=== PATIENT | female | born 1975 | race Hispanic/Latino ===

== ENCOUNTER 2018-12-22 08:01 | Emergency (ER) | payer BC ==
--- OUTSIDE RECORDS SUMMARY | 2018-12-22 08:04 | XMS REPORT | Encounter Summary ---
:1975 Author Reason for Visit Follow Up Visit Instructions 1. Obesity phentermine 37.5 mg tablet Discussion Note: None recorded.Patient educational handouts: No information available. Plan of Care Reminders Provider Appointments Weight Cheng Vides Management 09/24/2018 MD Junior 10:45AM Lab None recorded. Referral None recorded. Procedures None recorded. Surgeries None recorded. Imaging None recorded. Medications Name Start Date bupropion HCl XL 150 mg 24 hr tablet, extended release TAKE 1 TABLET BY MOUTH EVERY DAY phentermine 37.5 mg tablet Take 1 tablet every day by oral route. Medications Administered None recorded. Vitals Height Weight BMI Blood Pressure 66.5 in 200 lbs 1 oz 31.8 kg/m2 136/91 mm[Hg] Lab Results None recorded. Allergies Code Code System Name Reaction Severity Status Onset 729787 RxNorm Cymbalta Active 949476 RxNorm Demerol Active 406289 RxNorm Topamax Active Problems Name Status Onset Date Source Obesity Active Encounter Anxiety Active Encounter Chronic Back Pain Active Encounter Abdominal Mass Active Encounter Procedures Date Name Performed by 07/14/2014 Colonoscopy Information not available 07/14/1998 Back Surgery Information not available Vaccine List None recorded. Social History Smoking Status Never Smoker Past Encounters 08/25/2018 Obesity Cheng Pacheco MD: [address] [facility], [address], [place] [address], Ph. History of Present Illness Note: Here for weight management. Denies any side effects to the medication. Feels well. Review of Systems General Adult ROS, Hamzah General Adult ROS, Comprehensive Adult Problem ROS Reported By: Patient Constitutional: Constitutional: no fever, no night sweats Eyes: Eyes: no dry eyes, no irritation, no vision change. Eyes: no eye pain, no eye redness, no eye itchiness ENMT: Ears: no difficulty hearing, no ear pain, no ear discharge. Nose: no frequent nosebleeds. Mouth/Throat: no sore throat, no mouth ulcers Cardiovascular: Cardiovascular: no chest pain, no arm pain on exertion, no shortness of breath when walking, no shortness of breath when lying down, no palpitations. Cardiovascular: normal heart rate Respiratory: Respiratory: no cough, no wheezing, no shortness of breath, no coughing up blood. Respiratory: no chest tightness, no pain with respiration, normal respiration Gastrointestinal: Gastrointestinal: no abdominal pain, no vomiting, normal appetite, no diarrhea, not vomiting blood. GI: no difficulty swallowing, no nausea, no diarrhea, no constipation, no blood in stools Musculoskeletal: Musculoskeletal: no muscle aches, no muscle weakness, no arthralgias/joint pain, no back pain, no soft tissue swelling, no joint swelling, no myalgia, moves all extremities well Integumentary: Skin: no abnormal mole, no jaundice, no rashes, no pain, no flaking, no skin lesions Neurologic: Neurologic: no loss of consciousness, no weakness, no numbness, no seizures, no dizziness, no headaches. Neuro: no tingling, no burning, no shooting pain Psychiatric: Psych: no depression, no sleep disturbances, no anxiety, no insomnia Endocrine: Endocrine: no fatigue, normal drinking, no temperature intolerance Hematologic/Lymphatic: Hematologic/Lymphatic no swollen glands, no bruising Allergic/Immunologic: Allergy/Immunologic: no runny nose, no sinus pressure, no itching, no hives, no frequent sneezing Constitutional: Constitutional: happy/content, normal activity level Physical Exam General Adult Exam - Female Reported By: Patient Constitutional: General Appearance: healthy-appearing, well-nourished, well-developed. Level of Distress: NAD. Ambulation: ambulating normally Psychiatric: Insight: good judgement. Mental Status: active and alert, normal mood, normal affect. Orientation: to time, to place, to person. Memory: recent memory normal Head: Head: normocephalic Eyes: Pupils: PERRLA. EOM: EOMI. Sclerae: non-icteric ENMT: Oropharynx: moist mucous membranes Neck: Neck: supple, FROM. Thyroid: no enlargement, non-tender, no nodules Lungs: Respiratory effort: no dyspnea. Auscultation: breath sounds normal, good air movement Cardiovascular: Heart Auscultation: RRR, normal S1, normal S2. Neck vessels: no carotid bruits. Pulses including femoral / pedal: normal throughout Abdomen: Bowel Sounds: normal. Inspection and Palpation: soft, non-distended, no tenderness, no guarding Musculoskeletal:: Motor Strength and Tone: normal motor strength, normal tone. Joints, Bones, and Muscles: normal movement of all extremities. Extremities: no cyanosis, no edema, no varicosities Neurologic: Gait and Station: normal gait, normal station. Cranial Nerves: grossly intact. Reflexes: DTRs 2+ bilaterally throughout Skin: Inspection and palpation: no rash, no lesions
--- OUTSIDE RECORDS SUMMARY | 2018-12-22 08:04 | XMS REPORT | Encounter Summary ---
:1975 Author Reason for Visit Follow Up Visit Instructions 1. Obesity phentermine 37.5 mg tablet Discussion Note: None recorded.Patient educational handouts: No information available. Plan of Care Reminders Provider Appointments None recorded. Lab None recorded. Referral None recorded. Procedures None recorded. Surgeries None recorded. Imaging None recorded. Medications Name Start Date bupropion HCl XL 150 mg 24 hr tablet, extended release TAKE 1 TABLET BY MOUTH EVERY DAY phentermine 37.5 mg tablet Take 1 tablet every day by oral route. Medications Administered None recorded. Vitals Height Weight BMI Blood Pressure 66.5 in 199 lbs 7 oz 31.7 kg/m2 123/89 mm[Hg] Lab Results None recorded. Allergies Code Code System Name Reaction Severity Status Onset 126829 RxNorm Cymbalta Active 822738 RxNorm Demerol Active 114198 RxNorm Topamax Active Problems Name Status Onset Date Source Obesity Active Encounter Anxiety Active Encounter Chronic Back Pain Active Encounter Abdominal Mass Active Encounter Procedures Date Name Performed by 07/14/2014 Colonoscopy Information not available 07/14/1998 Back Surgery Information not available Vaccine List None recorded. Social History Smoking Status Never Smoker Past Encounters 07/23/2018 Obesity Cheng Pacheco MD: [address] [facility], [address], [place] [address], Ph. 06/25/2018 Obesity Cheng Pacheco MD: [address] [facility], [address], [place] [address], Ph. History of Present Illness Note: Here for weight management, Patient has lost 3 pounds since last visit. Denies any side effectsto the medication. Feels well. Review of Systems General Adult ROS, Hamzah General Adult ROS, Comprehensive Adult Problem ROS Reported By: Patient Constitutional: Constitutional: no fever, no night sweats, weight loss ( lbs) Eyes: Eyes: no dry eyes, no irritation, [...]
--- OUTSIDE RECORDS SUMMARY | 2018-12-22 08:04 | XMS REPORT | Encounter Summary ---
:1975 Author Reason for Visit Follow Up Visit Instructions 1. Obesity phentermine 37.5 mg tablet Discussion Note: None recorded.Patient educational handouts: No information available. Plan of Care Reminders Provider Appointments Weight Cheng Vides Management 10/29/2018 MD Junior 10:45AM Lab None recorded. Referral None recorded. Procedures None recorded. Surgeries None recorded. Imaging None recorded. Medications Name Start Date bupropion HCl XL 150 mg 24 hr tablet, extended release TAKE 1 TABLET BY MOUTH EVERY DAY phentermine 37.5 mg tablet Take 1 tablet every day by oral route. Medications Administered None recorded. Vitals Height Weight BMI Blood Pressure 66.5 in 198 lbs 1 oz 31.5 kg/m2 (1) 141/106 mm[Hg] (2) 145/99 mm[Hg] Lab Results None recorded. Allergies Code Code System Name Reaction Severity Status Onset 448641 RxNorm Cymbalta Active 044857 RxNorm Demerol Active 808523 RxNorm Topamax Active Problems Name Status Onset Date Source Obesity Active Encounter Anxiety Active Encounter Chronic Back Pain Active Encounter Abdominal Mass Active Encounter Procedures Date Name Performed by 07/14/2014 Colonoscopy Information not available 07/14/1998 Back Surgery Information not available Vaccine List None recorded. Social History Smoking Status Never Smoker Past Encounters 09/24/2018 Obesity Cheng Pacheco MD: [address] [place] [address], [address], [place] [address], Ph. History of Present Illness Note: Here [...]
--- OUTSIDE RECORDS SUMMARY | 2018-12-22 08:04 | XMS REPORT | Encounter Summary ---
:1975 Author Care Team Providers Name Role Phone Cheng Pacheco MD Primary Care Provider [phone] Reason for Visit Follow Up Visit Instructions 1. Obesity phentermine 37.5 mg tablet Discussion Note: None recorded.Patient educational handouts: No information available. Plan of Care Reminders Provider Appointments Weight Cheng Vides Management 11/26/2018 MD Junior 10:45AM Lab None recorded. Referral None recorded. Procedures None recorded. Surgeries None recorded. Imaging None recorded. Medications Name Start Date bupropion HCl XL 150 mg 24 hr tablet, extended release TAKE 1 TABLET BY MOUTH EVERY DAY phentermine 37.5 mg tablet Take 1 tablet every day by oral route for 30 days. Medications Administered None recorded. Vitals Height Weight BMI Blood Pressure 66.5 in 207 lbs 3 oz 32.9 kg/m2 128/83 mm[Hg] Lab Results None recorded. Allergies Code Code System Name Reaction Severity Status Onset 620324 RxNorm Cymbalta Active 839650 RxNorm Demerol Active 716177 RxNorm Topamax Active Problems Name Status Onset Date Source Obesity Active Encounter Anxiety Active Encounter Chronic Back Pain Active Encounter Abdominal Mass Active Encounter Procedures Date Name Performed by 01/29/2018 Ankle Arthroscopy/surgery Information not available 07/14/2014 Colonoscopy Information not available 07/14/1998 Back Surgery Information not available Breast Procedure Information not available Vaccine List None recorded. Social History Smoking Status Never Smoker Past Encounters 10/29/2018 Obesity Cheng Pacheco MD: [address] [facility], [address], [place] [address], Ph. History of Present Illness Note: Here [...]
--- OUTSIDE RECORDS SUMMARY | 2018-12-22 08:05 | XMS REPORT | Encounter Summary ---
:1975 Author Care Team Providers Name Role Phone Cheng Pacheco MD Primary Care Provider [phone] Reason for Visit Follow Up Visit Instructions 1. Depressive disorder learning about mood disorders bupropion HCl XL 300 mg 24 hr tablet, extended release Discussion Note: None recorded. Plan of Care Reminders Provider Appointments Return to on or around Cheng Vides Office 11/18/2018 MD Junior Weight 11/26/2018 Cheng Vides Management 10:45AM MD Junior Lab None recorded. Referral None recorded. Procedures None recorded. Surgeries None recorded. Imaging None recorded. Medications Name Start Date bupropion HCl XL 150 mg 24 hr tablet, extended release TAKE 1 TABLET BY MOUTH EVERY DAY bupropion HCl XL 300 mg 24 hr tablet, extended release Take 1 tablet every day by oral route for 30 days. Myrbetriq 50 mg tablet,extended release phentermine 37.5 mg tablet Take 1 tablet every day by oral route for 30 days. Medications Administered None recorded. Vitals Height Weight BMI Blood Pressure 66.5 in 206 lbs 16 oz 32.9 kg/m2 132/92 mm[Hg] Lab Results None recorded. Allergies Code Code System Name Reaction Severity Status Onset 093236 RxNorm Cymbalta Active 847479 RxNorm Demerol Active 507953 RxNorm Topamax Active Problems Name Status Onset Date Source Obesity Active Encounter Anxiety Active Encounter Chronic Back Pain Active Encounter Abdominal Mass Active Encounter Procedures Date Name Performed by 01/29/2018 Ankle Arthroscopy/surgery Information not available 07/14/2014 Colonoscopy Information not available 07/14/1998 Back Surgery Information not available Breast Procedure Information not available Vaccine List None recorded. Social History Smoking Status Never Smoker Past Encounters 11/04/2018 Depressive Disorder Cheng Pacheco MD: [address] [facility], [address], [place] [address], Ph. 10/29/2018 Obesity Cheng Pacheco MD: [address] [place] [address], [address], [place] [address], Ph. History of Present Illness Care Management - Anxiety/Depression Reported By: Patient Care Management: Prognosis: prognosis: moderate. Diagnosed greater than 5 years ago. Compliance taking medications as directed yes, keeping follow up appointments appropriately yes, minimizing/abstaining from alcohol use yes, abstaining from drug use yes. Follow Up with PCP scheduled yes, with psychologist/psychiatrist no. Current Medication ; Bupropion XL 150 Mill grams by mouth daily. States she feels that she needs to up the dose Interim History: Severity: denies suicidal ideations, able to maintain relationships, interference with household activities, interference with sleep. Quality: symptoms worse in the evening, mood worse, increased anxiety. Onset/Timing: gradual. Context: major life stressors, family problems, legal problems. Modifying Factors: social support. Associated Symptoms: denies homicidal ideations, no visual/auditory hallucinations, no delusions, no shortness of breath, maintaining functionality, anxiety, depression, loneliness, low self-esteem, pessimism Review of Systems General Adult ROS, Hamzah [...] no tingling, no burning, no shooting pain Endocrine: Endocrine: no fatigue, normal drinking, no [...] good judgement. Mental Status: active and alert, anxious , depressed. Orientation: to time, to place, to person. [...]
--- OUTSIDE RECORDS SUMMARY | 2018-12-22 08:05 | XMS REPORT | Encounter Summary ---
:1975 Author Care Team Providers Name Role Phone Cheng Pacheco MD Primary Care Provider [phone] Reason for Visit Follow Up Visit Instructions 1. Obesity phentermine 37.5 mg tablet 2. Depressive disorder learning about mood disorders Discussion Note: None recorded. Plan of Care Reminders Provider Appointments None [...] Height Weight BMI Blood Pressure 66.5 in 205 lbs 32.6 kg/m2 136/92 mm[Hg] Lab Results None recorded. Allergies Code Code System Name Reaction Severity Status Onset 772294 RxNorm Cymbalta Active 048864 RxNorm Demerol Active 402580 RxNorm Topamax Active Problems Name Status Onset Date Source Obesity Active Encounter Anxiety Active Encounter Chronic Back Pain Active Encounter Abdominal Mass Active Encounter Procedures Date Name Performed by 01/29/2018 Ankle Arthroscopy/surgery Information not available 07/14/2014 Colonoscopy Information not available 07/14/1998 Back Surgery Information not available Breast Procedure Information not available Vaccine List None recorded. Social History Smoking Status Never Smoker Past Encounters 11/26/2018 Obesity; Depressive Disorder Cheng Pacheco MD: [address] [facility], [address], [place] [address], Ph. 11/04/2018 Depressive Disorder Cheng Pacheco MD: [address] [facility], [address], [place] [address], Ph. 10/29/2018 Obesity Cheng Pacheco MD: [address] [place] [address], [address], [place] [address], Ph. History of Present Illness Anxiety/Depression Reported By: Patient HPI: Quality: symptoms improved. Severity: denies suicidal ideations, able to maintain relationships, does not interfere with activities of daily living. Duration: stablizing. Onset/Timing: gradual. Context: major life stressors. Modifying Factors: medications as directed. Associated Symptoms: denies homicidal ideations Note: Here for weight management. Denies any [...]
[2018-12-22 08:51] LABS: Absolute Lymphocytes (CBC) 1.6 K/uL (0.7-4.9); Absolute Monocytes 0.5 K/uL (0.1-1.3); Absolute Neutrophil 3.1 K/uL (1.8-8.0); Basophils % 1.4 % (0-1.3); Eosinophils % 1.7 % (0-4.4); Hematocrit 37.8 % (36.0-45.0); Lymphocytes % 29.6 % (15.3-44.8); MPV 7.1 fL (7.6-11.3); Monocytes % 8.6 % (3.3-12.3); RBC Red Blood Cell Count 4.13 M/uL (3.86-4.86)
[2018-12-22 09:08] LABS: ALT/SGPT 16 U/L (12-78); AST/SGOT 10 U/L (15-37); Albumin 3.6 g/dL (3.4-5.0); Alkaline Phosphatase 68 U/L (45-117); BUN Blood Urea Nitrogen 9 mg/dL (7-18); Bicarbonate 27 mmol/L (21-32); Bilirubin Direct 0.2 mg/dL (0-0.2); Glucose Level 82 mg/dL (74-106); Lipase 83 U/L (73-393); Potassium 3.7 mmol/L (3.5-5.1); Protein, Total 7.3 g/dL (6.4-8.2); Sodium Level 139 mmol/L (136-145)
[2018-12-22] MEDS ORDERED: KETOROLAC 30 MG/ML INJ ONE (09:34)
[2018-12-22] MEDS ORDERED: NA CHLORIDE 0.9% 1,000 ML ONE (09:34)
[2018-12-22] MEDS ORDERED: ONDANSETRON 4 MG/2 ML VIAL ONE (09:34)
[2018-12-22 10:05] LABS: Urine Blood NEGATIVE (NEG); Urine Glucose NEGATIVE (NEG); Urine Protein TRACE (NEG); Urine Specific Gravity 1.015 (1.005-1.030); Urine pH 7.5 (5.0-7.0)
--- NOTE | 2018-12-22 10:10 | RAD REPORT ---
EXAM DESCRIPTION: CT - Abdomen Pelvis W Contrast - 12/22/2018 9:30 am CLINICAL HISTORY: Abdominal pain with nausea. COMPARISON: 2014 TECHNIQUE: Computed axial tomography of the abdomen pelvis was obtained. 100 cc Isovue-300 was admin istered intravenously. Oral contrast was not requested which limits evaluation of bowel. All CT scans are performed using dose optimization technique as appropriate and may include automated exposure control or mA/KV adjustment according to patient size. FINDINGS: Mild fatty liver The Spleen, pancreas, adrenal and kidneys appear unremarkable. There is no evidence of diverticulitis. Normal appendix 6 centimeter structure is present within the cecum extending into the terminal ileum A small umbilical hernia contains fat Postsurgical changes involve the lumbar spine IMPRESSION: 6 centimeter soft tissue structure within the cecum extending into the terminal ileum ma y represent a mass or stool. Direct visualization recommended
--- NOTE | 2018-12-22 11:30 | ER ---
Nurse's Notes [facility] Name: Lin Escalante Age: 43 yrs Sex: Female : 1975 Arrival Date: 12/22/2018 Time: 08:06 Bed 16 Private MD: out of town, doctor Diagnosis: Right lower quadrant abdominal swelling, mass and lump Presentation: 12/22 08:09 Presenting complaint: Patient states: She feels bloated and nauseous. c/o urine rb1 frequency and right lower back that radiates down her right leg and right lower quadrant pain. Transition of care: patient was not received from another setting of care. Onset of symptoms is unknown. Risk Assessment: Do you want to hurt yourself or someone else? Patient reports no desire to harm self or others. Initial Sepsis Screen: Does the patient meet any 2 criteria? No. Patient's initial sepsis screen is negative. Does the patient have a suspected source of infection? No. Patient's initial sepsis screen is negative. Care prior to arrival: None. 08:09 Method Of Arrival: Ambulatory rb1 08:09 Acuity: USHA 3 rb1 Triage Assessment: 08:09 General: Appears in no apparent distress. comfortable, Behavior is calm, cooperative, rb1 Denies fever. Pain: Complains of pain in right lower back, righ lower quadrant Pain radiates to right leg Pain currently is 8 out of 10 on a pain scale. Pain began x 2 weeks. Neuro: Level of Consciousness is awake, alert, obeys commands, Oriented to person, place, time, situation. Cardiovascular: Capillary refill < 3 seconds is brisk in bilateral fingers. Respiratory: Airway is patent Respiratory effort is even, unlabored, Respiratory pattern is regular, symmetrical. GI: Reports nausea. : Reports urinary frequency. Derm: Skin is pink, warm \T\ dry. 08:09 GI: Reports bloating. 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 - Social history:: Smoking status: Patient/guardian denies using tobacco. - Ebola Screening: : Patient negative for fever greater than or equal to 101.5 degrees Fahrenheit, and additional compatible Ebola Virus Disease symptoms. Screenin:09 Abuse screen: Denies threats or abuse. rb1 08:09 Nutritional screening: No deficits noted. Tuberculosis screening: No symptoms or risk rb1 factors identified. Fall Risk None identified. Assessment: 08:09 General: See triage assessment.. rb1 09:00 Reassessment: Patient appears in no apparent distress at this time. No changes from rb1 previously documented assessment. 10:00 Reassessment: Patient appears in no apparent distress at this time. Patient and/or rb1 family updated on plan of care and expected duration. Pain level reassessed. Patient is alert, oriented x 3, equal unlabored respirations, skin warm/dry/pink. 10:51 Reassessment: Pt. ambulated to the restroom without difficulty. rb1 11:00 Reassessment: Patient appears in no apparent distress at this time. Patient and/or rb1 family updated on plan of care and expected duration. Pain level reassessed. Patient is alert, oriented x 3, equal unlabored respirations, skin warm/dry/pink. 11:39 Reassessment: Patient appears in no apparent distress at this time. No changes from rb1 previously documented assessment. Vital Signs: 08:09 BP 129 / 88; Pulse 77; Resp 17; Temp 98.0(O); Pulse Ox 100% on R/A; Weight 86.18 kg rb1 (R); Height 5 ft. 7 in. (170.18 cm) (R); Pain 8/10; 09:09 BP 127 / 77; Pulse 65; Resp 17; Temp 98.2(TE); Pulse Ox 100% ; Pain 8/10; rb1 10:09 BP 127 / 87; Pulse 65; Resp 16; Temp 98.5(TE); Pulse Ox 100% on R/A; Pain 6/10; rb1 11:30 BP 127 / 81 RA (auto/reg); Pulse 76; Pulse Ox 100% on R/A; rb1 08:09 Body Mass Index 29.76 (86.18 kg, 170.18 cm) [facility] ED Course: 08:06 Patient arrived in ED. mr 08:06 out of town, doctor is Private Physician. mr 08:09 Nieves Mckeon, RN is Primary Nurse. rb1 08:09 Arm band placed on right wrist. rb1 08:09 Patient has correct armband on for positive identification. Placed in gown. Bed in low rb1 position. Call light in reach. Side rails up X 1. Pulse ox on. NIBP on. Warm blanket given. 08:16 Ivis Tristan MD is Attending Physician. ma2 08:17 Attending Physician role handed off by Ivis Tristan MD tw4 08:17 Aden Babcock MD is Attending Physician. tw4 08:27 Triage completed. rb1 08:40 Inserted saline lock: 22 gauge in left antecubital area, using aseptic technique. Blood rb1 collected. 09:34 CT Abd/Pelvis - IV Contrast Only In Process Unspecified. EDMS 11:25 Dorian Flynn MD is Referral Physician. tw4 11:25 Rafat Beckham MD is Referral Physician. tw4 11:26 Jovani Douglas MD is Referral Physician. tw4 11:39 No provider procedures requiring assistance completed. IV discontinued, intact, rb1 bleeding controlled, No redness/swelling at site. Pressure dressing applied, Dc'd by SYED Jones Tech. Administered Medications: 09:38 Drug: TORadol 30 mg Route: IVP; Site: left antecubital; rb1 09:52 Follow up: Response: No adverse reaction; Pain is decreased rb1 09:38 Drug: Zofran 4 mg Route: IVP; Site: left antecubital; rb1 09:52 Follow up: Response: No adverse reaction; Nausea is decreased rb1 09:38 Drug: NS 0.9% 1000 ml Route: IV; Rate: 1 bolus; Site: left antecubital; rb1 10:42 Follow up: IV Status: Completed infusion rb1 Output: 10:50 Urine: 1ml (Voided); Total: 1ml. rb1 Outcome: 11:27 Discharge ordered by . tw4 11:41 Discharged to home ambulatory, with significant other. rb1 11:41 Condition: stable 11:41 Discharge instructions given to patient, Instructed on discharge instructions, follow up and referral plans. medication usage, Demonstrated understanding of instructions, follow-up care, medications, Prescriptions given X 2. 11:42 Patient left the ED. rb1 Signatures: Dispatcher [facility] Rayna Dan Rebecca, RN RN rb1 Ivis Tristan MD MD ma2 Aden Babcock MD MD tw4
--- NOTE | 2018-12-22 11:30 | EDPHYS ---
Physician Documentation [facility] Name: Lin Escalante Age: 43 yrs Sex: Female : 1975 Arrival Date: 12/22/2018 Time: 08:06 Bed 16 Private MD: out of town, doctor ED Physician Aden Babcock HPI: 12/22 11:00 This 43 yrs old Female presents to ER via Ambulatory with complaints of tw4 Nausea, Abdominal Swelling, Abdominal Pain. 11:00 The patient presents to the emergency department with nausea, vomiting. Possible tw4 causes: flare up of bowel problem. The symptoms are aggravated by nothing. The symptoms are alleviated by nothing. 16:26 Onset: The symptoms/episode began/occurred 3 week(s) ago. Associated signs and tw4 symptoms: The patient has no apparent associated signs or symptoms. Severity of symptoms: At their worst the symptoms were mild in the emergency department the symptoms are unchanged. The patient has not experienced similar symptoms in the past. 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 - Social history:: Smoking status: Patient/guardian denies using tobacco. - Ebola Screening: : Patient negative for fever greater than or equal to 101.5 degrees Fahrenheit, and additional compatible Ebola Virus Disease symptoms. ROS: 16:24 Constitutional: Negative for fever, chills, and weight loss, Eyes: Negative for injury, tw4 pain, redness, and discharge, ENT: Negative for injury, pain, and discharge, Respiratory: Negative for shortness of breath, cough, wheezing, and pleuritic chest pain, Back: Negative for injury and pain, MS/Extremity: Negative for injury and deformity, Skin: Negative for injury, rash, and discoloration, Neuro: Negative for headache, weakness, numbness, tingling, and seizure. 16:24 Abdomen/GI: Positive for abdominal pain, nausea, Negative for nausea and vomiting, nausea, vomiting, and diarrhea, abdominal cramps, abdominal distension, anorexia, dysphagia, hematemesis, black/tarry stool, rectal pain, rectal bleeding. Exam: 16:24 Constitutional: This is a well developed, well nourished patient who is awake, alert, tw4 and in no acute distress. Head/Face: Normocephalic, atraumatic. Chest/axilla: Normal chest wall appearance and motion. Nontender with no deformity. No lesions are appreciated. Cardiovascular: Regular rate and rhythm with a normal S1 and S2. No gallops, murmurs, or rubs. Normal PMI, no JVD. No pulse deficits. Respiratory: Lungs have equal breath sounds bilaterally, clear to auscultation and percussion. No rales, rhonchi or wheezes noted. No increased work of breathing, no retractions or nasal flaring. Back: No spinal tenderness. No costovertebral tenderness. Full range of motion. Skin: Warm, dry with normal turgor. Normal color with no rashes, no lesions, and no evidence of cellulitis. MS/ Extremity: Pulses equal, no cyanosis. Neurovascular intact. Full, normal range of motion. Neuro: Awake and alert, GCS 15, oriented to person, place, time, and situation. Cranial nerves II-XII grossly intact. Motor strength 5/5 in all extremities. Sensory grossly intact. Cerebellar exam normal. Normal gait. 16:24 Abdomen/GI: Inspection: abdomen appears normal, Bowel sounds: active, Palpation: mild abdominal tenderness, in the right lower quadrant. Vital Signs: 08:09 BP 129 / 88; Pulse 77; Resp 17; Temp 98.0(O); Pulse Ox 100% on R/A; Weight 86.18 kg rb1 (R); Height 5 ft. 7 in. (170.18 cm) (R); Pain 8/10; 09:09 BP 127 / 77; Pulse 65; Resp 17; Temp 98.2(TE); Pulse Ox 100% ; Pain 8/10; rb1 10:09 BP 127 / 87; Pulse 65; Resp 16; Temp 98.5(TE); Pulse Ox 100% on R/A; Pain 6/10; rb1 11:30 BP 127 / 81 RA (auto/reg); Pulse 76; Pulse Ox 100% on R/A; rb1 08:09 Body Mass Index 29.76 (86.18 kg, 170.18 cm) rb1 MDM: 08:17 Patient medically screened. tw4 16:24 Differential diagnosis: Nonspecific abd pain, gastritis. Data reviewed: vital signs, tw4 nurses notes. Counseling: I had a detailed discussion with the patient and/or guardian regarding: the historical points, exam findings, and any diagnostic results supporting the discharge/admit diagnosis. 12/22 08:21 Order name: Basic Metabolic Panel tw 12/22 08:21 Order name: CBC with Diff tw4 12/22 08:21 Order name: Creatinine for Radiology tw 12/22 08:21 Order name: Hepatic Function; Complete Time: 10:57 tw4 12/22 08:21 Order name: Lipase; Complete Time: 10:57 tw 12/22 08:24 Order name: Basic Metabolic Panel; Complete Time: 10:57 EDGA 12/22 08:24 Order name: CBC with Automated Diff; Complete Time: 10:57 EDGA 12/22 08:24 Order name: Creatinine (Radiology Only); Complete Time: 10:57 EDGA 12/22 08:51 Order name: CT Abd/Pelvis - IV Contrast Only; Complete Time: 10:57 [facility] 12/22 09:31 Order name: Urine Culture [facility] 12/22 09:32 Order name: Urine Dipstick--Ancillary (enter results); Complete Time: 10:57 12/22 09:32 Order name: Urine --Ancillary (enter results); Complete Time: 10:57 12/22 08:21 Order name: IV Saline Lock; Complete Time: 08:44 [facility] 12/22 08:21 Order name: Labs collected and sent; Complete Time: 08:44 [facility] 12/22 09:31 Order name: Urine Dipstick-Ancillary (obtain specimen); Complete Time: 09:33 rb1 Administered Medications: 09:38 Drug: TORadol 30 mg Route: IVP; Site: left antecubital; rb1 09:52 Follow up: Response: No adverse reaction; Pain is decreased rb1 09:38 Drug: Zofran 4 mg Route: IVP; Site: left antecubital; rb1 09:52 Follow up: Response: No adverse reaction; Nausea is decreased rb1 09:38 Drug: NS 0.9% 1000 ml Route: IV; Rate: 1 bolus; Site: left antecubital; rb1 10:42 Follow up: IV Status: Completed infusion rb1 Disposition: 12/22/18 11:27 Discharged to Home. Impression: Right lower quadrant abdominal swelling, mass and lump. - Condition is Stable. - Discharge Instructions: Colon Mass, Adult. - Prescriptions for Ibuprofen 800 mg Oral Tablet - take 1 tablet by ORAL route every 12 hours As needed take with food; 20 tablet. Zofran 4 mg Oral Tablet - take 1 tablet by ORAL route every 12 hours As needed; 6 tablet. - Family Work Release, Medication Reconciliation Form, Thank You Letter, Antibiotic Education, Prescription Opioid Use form. - Follow up: Dorian Flynn MD; When: Upon discharge from the Emergency Department; Reason: If symptoms return, Recheck today's complaints, Continuance of care. Follow up: Rafat Beckham MD; When: Upon discharge from the Emergency Department; Reason: If symptoms return, Recheck today's complaints, Continuance of care. Follow up: Jovani Douglas MD; When: Upon discharge from the Emergency Department; Reason: If symptoms return, Recheck today's complaints, Continuance of care. Signatures: Dispatcher [employer] Nieves Kahn, NABILA RN rb1 Aden Babcock MD MD tw4 Corrections: (The following items were deleted from the chart) 11:42 11:27 12/22/2018 11:27 Discharged to Home. Impression: Right lower quadrant abdominal rb1 swelling, mass and lump. Condition is Stable. Forms are Medication Reconciliation Form, Thank You Letter, Antibiotic Education, Prescription Opioid Use. Follow up: Dorian Flynn; When: Upon discharge from the Emergency Department; Reason: If symptoms return, Recheck today's complaints, Continuance of care. Follow up: Rafat Beckham; When: Upon discharge from the Emergency Department; Reason: If symptoms return, Recheck today's complaints, Continuance of care. Follow up: Jovani Douglas; When: Upon discharge from the Emergency Department; Reason: If symptoms return, Recheck today's complaints, Continuance of care. tw4 16:26 11:00 Onset: The symptoms/episode began/occurred today, tw4 tw4
== END 2018-12-22 11:42 | disposition home or self-care (01) ==
LOC: ER 08:01
DX: R19.03 Right lower quadrant abdominal swelling, mass and lump (principal); F32.9 Major depressive disorder, single episode, unspecified; Z88.5 Allergy status to narcotic agent
CPT/HCPCS: 36415; 74177; 80048; 80076; 81003; 81025; 83690; 85025; 87086; 87088; 96361; 96374; 96375; 99284; J2405; J7030; Q9967

== ENCOUNTER 2022-05-22 01:23 | Emergency (ER) | payer BC ==
[2022-05-22] MEDS ORDERED: HYDROCODONE/APAP 5/325 MG TAB ONE (01:53)
--- NOTE | 2022-05-22 06:48 | ER ---
Nurse's Notes [facility] Name: Lin Escalante Age: 47 yrs Sex: Female : 1975 Arrival Date: 05/22/2022 Time: 01:25 Bed 13 Private MD: Diagnosis: Uterine fibroid, abdominal pain, genital herpes Presentation: 05/22 01:41 Chief complaint: Patient states: I have fibroid cyst and the pain is worse than normal jb4 tonight. I also have a lesion that just showed up on the outside of my genitalia and it is now bleeding. Coronavirus screen: At this time, the client does not indicate any symptoms associated with coronavirus-19. Ebola Screen: No symptoms or risks identified at this time. Initial Sepsis Screen: Does the patient meet any 2 criteria? HR > 90 bpm. Yes Does the patient have a suspected source of infection? No. Patient's initial sepsis screen is negative. Risk Assessment: Do you want to hurt yourself or someone else? Patient reports no desire to harm self or others. Onset of symptoms was May 22, 2022. Transition of care: patient was not received from another setting of care. 01:41 Method Of Arrival: Ambulatory jb4 01:41 Acuity: USHA 3 jb4 Historical: - Allergies: 01:42 Demerol; jb4 - Home Meds: 01:42 None [Active]; jb4 - PMHx: 01:42 Depression; jb4 - PSHx: 01:42 spinal fusion; ankle fusion; jb4 - Immunization history:: Adult Immunizations not up to date. - Social history:: Smoking status: Patient denies any tobacco usage or history of. Screenin:45 Abuse screen: Denies threats or abuse. Nutritional screening: No deficits noted. jb4 Tuberculosis screening: No symptoms or risk factors identified. Fall Risk None identified. Assessment: 01:45 General: Appears in no apparent distress. uncomfortable, Behavior is calm, cooperative, jb4 appropriate for age, Chaperoned by NABILA Gabriel. Pain: Complains of pain in right lower quadrant, left lower quadrant and prepuce Pain does not radiate. Pain currently is 8 out of 10 on a pain scale. Neuro: Level of Consciousness is awake, alert, obeys commands, Oriented to person, place, time, situation. Cardiovascular: Patient's skin is warm and dry. Respiratory: Airway is patent Respiratory effort is even, unlabored, Respiratory pattern is regular, symmetrical. GI: Abdomen is non-distended, obese. : No signs and/or symptoms were reported regarding the genitourinary system. EENT: No signs and/or symptoms were reported regarding the EENT system. Derm: Skin is intact, Skin is pink, warm \T\ dry. Musculoskeletal: Circulation, motion, and sensation intact. Range of motion: intact in all extremities. Vital Signs: 01:41 BP 140 / 94; Pulse 96; Resp 16; Temp 98.3; Pulse Ox 100% on R/A; Weight 99.79 kg (R); jb4 Height 5 ft. 7 in. (170.18 cm) (R); Pain 8/10; 01:41 Body Mass Index 34.46 (99.79 kg, 170.18 cm) jb4 ED Course: 01:25 Patient arrived in ED. ja2 01:31 Trang Reaves MD is Attending Physician. sp3 01:42 Triage completed. jb4 01:42 Arm band placed on right wrist. jb4 01:45 Patient has correct armband on for positive identification. Bed in low position. Call jb4 light in reach. Side rails up X 1. 01:50 Wilder Snow RN is Primary Nurse. jb4 02:02 No provider procedures requiring assistance completed. Patient did not have IV access jb4 during this emergency room visit. Administered Medications: 01:55 Drug: HYDROcodone-acetaminophen 5 mg-325 mg 2 tabs Route: PO; jb4 02:03 Follow up: Response: Medication administered at discharge. jb4 Medication: 01:45 VIS not applicable for this client. jb4 Outcome: 01:54 Discharge ordered by . sp3 02:02 Discharged to home ambulatory. jb4 02:02 Condition: stable 02:02 Discharge instructions given to patient, Instructed on discharge instructions, follow up and referral plans. medication usage, Demonstrated understanding of instructions, follow-up care, medications, Prescriptions given X 2. 02:03 Patient left the ED. jb4 Signatures: Wilder Snow RN RN jb4 Trang Reaves MD MD sp3 Moni Severino [facility]
--- NOTE | 2022-05-22 06:48 | EDPHYS ---
Physician Documentation [facility] Name: Lin Escalante Age: 47 yrs Sex: Female : 1975 Arrival Date: 05/22/2022 Time: 01:25 Bed 13 Private MD: SYED Physician Trang Reaves HPI: 05/22 01:50 This 47 yrs old Female presents to ER via Ambulatory with complaints of Groin sp3 Pain, Abdominal Cramping. 01:50 47-year-old female with history of depression and uterine fibroids presents with sp3 typical uterine fibroid pattern along with new lesion on her right external labia that she noticed earlier yesterday. Lesion is painful and she states that bled mildly and is now resolved. Denies fever, URI symptoms, chest pain, shortness of breath, back pain, upper abdominal pain, nausea, vomiting, diarrhea, rash anywhere else, joint swelling, new sexual contacts, any other aspects of ROS at this time. 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 Currently she is in a monogamous relationship.. Historical: - Allergies: 01:42 Demerol; jb4 - Home Meds: 01:42 None [Active]; jb4 - PMHx: 01:42 Depression; jb4 - PSHx: 01:42 spinal fusion; ankle fusion; jb4 - Immunization history:: Adult Immunizations not up to date. - Social history:: Smoking status: Patient denies any tobacco usage or history of. ROS: 01:51 Constitutional: Negative for fever, chills, and weight loss, Eyes: Negative for injury, sp3 pain, redness, and discharge, ENT: Negative for injury, pain, and discharge, Neck: Negative for injury, pain, and swelling, Cardiovascular: Negative for chest pain, palpitations, and edema, Respiratory: Negative for shortness of breath, cough, wheezing, and pleuritic chest pain, Back: Negative for injury and pain, MS/Extremity: Negative for injury and deformity, Neuro: Negative for headache, weakness, numbness, tingling, and seizure, Psych: Negative for depression, anxiety, suicide ideation, homicidal ideation, and hallucinations, Allergy/Immunology: Negative for hives, rash, and allergies, Endocrine: Negative for neck swelling, polydipsia, polyuria, polyphagia, and marked weight changes, Hematologic/Lymphatic: Negative for swollen nodes, abnormal bleeding, and unusual bruising. 01:51 All other systems are negative. Exam: 01:52 Constitutional: This is a well developed, well nourished patient who is awake, alert, sp3 and in no acute distress. Head/Face: Normocephalic, atraumatic. Neck: Trachea midline, no thyromegaly or masses palpated, and no cervical lymphadenopathy. Supple, full range of motion without nuchal rigidity, or vertebral point tenderness. No Meningismus. Chest/axilla: Normal chest wall appearance and motion. Nontender with no deformity. No lesions are appreciated. Cardiovascular: Regular rate and rhythm with a normal S1 and S2. No gallops, murmurs, or rubs. Normal PMI, no JVD. No pulse deficits. Respiratory: Lungs have equal breath sounds bilaterally, clear to auscultation and percussion. No rales, rhonchi or wheezes noted. No increased work of breathing, no retractions or nasal flaring. Back: No spinal tenderness. No costovertebral tenderness. Full range of motion. Skin: Warm, dry with normal turgor. Normal color with no rashes, no lesions, and no evidence of cellulitis. MS/ Extremity: Pulses equal, no cyanosis. Neurovascular intact. Full, normal range of motion. Neuro: Awake and alert, GCS 15, oriented to person, place, time, and situation. Cranial nerves II-XII grossly intact. Motor strength 5/5 in all extremities. Sensory grossly intact. Cerebellar exam normal. Normal gait. 01:52 Abdomen/GI: Mild pain to palpation lower abdominal without peritoneal signs. Exam is limited secondary to body habitus.. 01:52 : Single vesicular lesion on the right lateral aspect of the outer labia consistent with herpetic lesion.. Vital Signs: 01:41 BP 140 / 94; Pulse 96; Resp 16; Temp 98.3; Pulse Ox 100% on R/A; Weight 99.79 kg (R); jb4 Height 5 ft. 7 in. (170.18 cm) (R); Pain 8/10; 01:41 Body Mass Index 34.46 (99.79 kg, 170.18 cm) jb4 MDM: 01:49 Patient medically screened. sp3 01:53 Data reviewed: vital signs, nurses notes. ED course: 47-year-old female with no sp3 significant past medical history and uterine fibroids presents with typical fibroid related pain pattern and herpetic lesion. I believe the herpetic lesion was more the reason for her to present as her fibroid pain is typical and she has no peritoneal signs and is in no significant distress. Will give [place] 2 tabs p.o. here and discharge patient home on p.o. diclofenac and antiviral for herpes. Follow-up with CRYPTOLOGIC SUPPORT SPECIALIST as needed. Patient is scheduled for surgery July 2022.. Administered Medications: 01:55 Drug: HYDROcodone-acetaminophen 5 mg-325 mg 2 tabs Route: PO; jb4 02:03 Follow up: Response: Medication administered at discharge. jb4 Disposition Summary: 05/22/22 01:54 Discharge Ordered Location: Home sp3 Condition: Stable sp3 Diagnosis - Uterine fibroid, abdominal pain, genital herpes sp3 Followup: sp3 - With: Private Physician - When: Upon discharge from the Emergency Department - Reason: Continuance of care Discharge Instructions: - Discharge Summary Sheet sp3 - Uterine Fibroids sp3 - Genital Herpes sp3 Forms: - Family Work Release jb4 - Medication Reconciliation Form sp3 - Thank You Letter sp3 - Antibiotic Education sp3 - Prescription Opioid Use sp3 Prescriptions: - Valtrex 500 mg Oral Tablet - take 1 tablet by ORAL route every 12 hours for 3 days; 6 tablet; Refills: 0, sp3 Product Selection Permitted - Diclofenac Sodium 75 mg Oral Tablet Sustained Release - take 1 tablet by ORAL route 2 times per day; 30 tablet; Refills: 0, Product sp3 Selection Permitted Signatures: Wilder Snow, NABILA RN jb4 Trang Reaves MD MD sp3
--- OUTSIDE RECORDS SUMMARY | 2022-05-22 06:51 | XMS REPORT | Continuity of Care Document ---
:1975 Author Organization [facility] t Address [facility] [place] [address] Care Team Providers Name Role Phone Cheng Pacheco Primary Care Physician Desiree Villanueva Attending Clinician Unavailable ELISHA DHALIWAL Attending Clinician Unavailable Elisha Sanches Attending Clinician [phone] Doctor Unassigned, [facility] Attending Clinician Unavailable Aldo Attending Clinician Unavailable MARIANA WYATT Attending Clinician Unavailable Mariana Gregory Attending Clinician MICHELLE KRUEGER Attending Clinician Unavailable Michelle Krueger DO Attending Clinician NURYS BURRELL Attending Clinician Unavailable Nurys Burrell DO Attending Clinician DOMENICO HICKS Attending Clinician Unavailable Domenico Hicks MD Attending Clinician NAZARIO JAMES Attending Clinician Unavailable Nazario Hall Attending Clinician Shalonda Barger Attending Clinician Shield Attending Clinician Unavailable Tye Barr MD Attending Clinician Radiology Attending Clinician Unavailable Desiree Villanueva Admitting Clinician Unavailable Aldo Admitting Clinician Unavailable MARIANA WYATT Admitting Clinician Unavailable NURYS BURRELL Admitting Clinician Unavailable DOMENICO HICKS Admitting Clinician Unavailable NAAZRIO JAMES Admitting Clinician Unavailable TYE BARR Admitting Clinician Unavailable Itzel Admitting Clinician Unavailable Payers Payer Name Policy Type Policy Number Effective Date Expiration Date Brittni botello [facility] [id number] 2020 00:00:00 [employer] [place] - [id number] 2018 OUT OF STATE 00:00:00 [facility] - [id number] 2020 2021 EV BENEFITS 00:00:00 00:00:00 [place] [id number] 2018 2020 00:00:00 00:00:00 Problems Condition Condition Condition Status Onset Resolution Last Treating Co mments Source Name Details Category Date Date Treatment Clinician Date Cervical Cervical Disease Active Overview: Un norman Papanicola Papanicola 8-24 Formattin ity of ou smear ou smear 00:00: g of this Aditya as negative negative 00 note Medica l within within might be Branch last 12 last 12 different months months from the original. NIL pap 09/2020 neg hpv Other Other Disease Active Univers general general 8-19 it[facility] of counseling [place] advice and advice 00 Me dical for for Branch contracept contracept edson edson management management Breast Breast Disease Active Univers pain pain 8-19 ity of 00:00: [place] [address] Medical Branch Obesity Obesity Disease Active Univers (BMI (BMI 8-19 ity of 30-39.9) 30-39.9) 00:00: [place] [address] Medical Branch History of History of Disease Active U nivers tubal tubal 8-19 ity of ligation ligation 00:00: [place] [address] Medical Branch History of History of Disease Active U nivers depression depression - it y of 00:00: [place] 00 Medical Branch History of History of Disease Active U nivers uterine uterine - ity of fibroid fibroid 00:00: [place] 00 Medical Branch Obesity Obesity Problem Active [facility] Anxiety Anxiety Problem Active [facility] Chronic Chronic Problem Active [facility] Abdominal Abdominal Problem Active [facility] Allergies, Adverse Reactions, Alerts Allergy Allergy Status Severity Reaction(s) Onset Inactive Treating Comm ents Source Name Type Date Date Clinician Meperidi Propensi Active Hives Univer s ne Hcl ty to 01-29 ity of adverse 00:00: [place] reaction 00 Medical s Branch MEPERIDI DRUG Active Hives Univers NE HCL INGREDI 01-29 ity of 00:00: [place] 00 Medical Branch meperidi DA Active U [facility] [place] meperidi DA Active U RASH [facility] [place] Cymbalta Allergy Active [facility] Demerol Allergy Active [facility] Topamax Allergy Active [facility] Duloxeti Propensi Active Rash Univer s ne ty to ity of adverse [place] reaction Medical s Branch Topirama Propensi Active Rash Univer s te ty to ity of adverse [place] reaction Medical s Branch DULOXETI DRUG Active Rash Univers NE INGREDI [facility] [place] [facility] TOPIRAMA DRUG Active Rash Univers TE INGREDI [facility] [place] [facility] Social History Social Habit Start Date Stop Date Quantity Comments Source Exposure to 2022-02-19 2022-03-01 Not sure University SARS-CoV-2 00:00:00 10:43:00 [place] Medical (event) Branch Tobacco use and 2022-03-01 2022-03-01 Smokeless tobacco Un iversity of exposure 00:00:00 00:00:00 non-user [facility] Alcohol intake 2022-03-01 2022-03-01 Current University of 00:00:00 00:00:00 non-drinker of [facility] alcohol (finding) Branch Sex Ass[birth year] At [birth year] Universit y of 00:00:00 00:00:00 [facility] Smoking Status Start Date Stop Date Source Never smoked tobacco [facility] Medications Ordered Filled Start Stop Current Ordering Indication Dosage Frequency Signature Comments Components Source Medication Medication Date Date Medication? Clinician (SIG) Name Name ampicillin 2021- Yes [id number] 500mg Take 1 Univers 500 mg 03-04 capsule by ity of capsule 00:00: 04:59 mouth 4 [place] 00 :00 ([facility]) Medical times Branch daily for 10 days. ampicillin 2021- Yes [id number] 500mg Take 1 Univers 500 mg 03-04 capsule by ity of capsule 00:00: 04:59 mouth 4 [place] 00 :00 ([facility]) Medical times Branch daily for 10 days. ampicillin 2021- Yes [id number] 500mg Take 1 Univers 500 mg 03-04 capsule by ity of capsule 00:00: 04:59 mouth 4 [place] 00 :00 ([facility]) Medical times Branch daily for 10 days. ampicillin 2021- Yes [id number] 500mg Take 1 Univers 500 mg 03-04 capsule by ity of capsule 00:00: 04:59 mouth 4 [place] 00 :00 ([facility]) Medical times Branch daily for 10 days. ampicillin 2021- Yes [id number] 500mg Take 1 Univers 500 mg 03-04 capsule by ity of capsule 00:00: 04:59 mouth 4 [place] 00 :00 ([facility]) Medical times Branch daily for 10 days. ampicillin 2021- Yes [id number] 500mg Take 1 Univers 500 mg 03-04 capsule by ity of capsule 00:00: 04:59 mouth 4 [place] 00 :00 ([facility]) Medical times Branch daily for 10 days. ampicillin 2021- Yes [id number] 500mg Take 1 Univers 500 mg 803-15 capsule by ity of capsule 00:00: 04:59 mouth 4 [place] 00 :00 ([facility]) Medical times Branch daily for 10 days. dicyclomine Yes [id number] 20mg Take 1 Univers 20 mg 5-25 tablet by ity of tablet 00:00: mouth 4 [place] 00 ([facility]) Medical times Branch daily as needed for Abdominal pain. metoclopram 2022-0 Yes [id number] 10mg Take 1 Univers leslie HCl 10 5-25 tablet by ity of mg tablet 00:00: mouth [place] 00 every 6 Medical (six) Branch hours as needed for Nausea and Vomiting (N/V). dicyclomine 2022-0 Yes [id number] 20mg Take 1 Univers 20 mg 5-25 tablet by ity of tablet 00:00: mouth 4 [place] 00 (four) Medical times Branch daily as needed for Abdominal pain. metoclopram 2022-0 Yes [id number] 10mg Take 1 Univers leslie HCl 10 5-25 tablet by ity of mg tablet 00:00: mouth [place] 00 every 6 Medical (six) Branch hours as needed for Nausea and Vomiting (N/V). dicyclomine 2022-0 Yes [id number] 20mg Take 1 Univers 20 mg 5-25 tablet by ity of tablet 00:00: mouth 4 00 (four) Medical times Branch daily as needed for Abdominal pain. metoclopram 2022-0 Yes [id number] 10mg Take 1 Univers leslie HCl 10 5-25 tablet by ity of mg tablet 00:00: mouth [place] 00 every 6 Medical (six) Branch hours as needed for Nausea and Vomiting (N/V). dicyclomine 2022-0 Yes [id number] 20mg Take 1 Univers 20 mg 5-25 tablet by ity of tablet 00:00: mouth 4 00 (four) Medical times Branch daily as needed for Abdominal pain. metoclopram 2022-0 Yes [id number] 10mg Take 1 Univers leslie HCl 10 5-25 tablet by ity of mg tablet 00:00: mouth [place] 00 every 6 Medical (six) Branch hours as needed for Nausea and Vomiting (N/V). dicyclomine 2022-0 Yes [id number] 20mg Take 1 Univers 20 mg 5-25 tablet by ity of tablet 00:00: mouth 4 00 (four) Medical times Branch daily as needed for Abdominal pain. metoclopram 2022-0 Yes [id number] 10mg Take 1 Univers leslie HCl 10 5-25 tablet by ity of mg tablet 00:00: mouth [place] 00 every 6 Medical (six) Branch hours as needed for Nausea and Vomiting (N/V). dicyclomine 2022-0 Yes [id number] 20mg Take 1 Univers 20 mg 5-25 tablet by ity of tablet 00:00: mouth 4 [place] 00 (four) Medical times Branch daily as needed for Abdominal pain. metoclopram 2022-0 Yes [id number] 10mg Take 1 Univers leslie HCl 10 5-25 tablet by ity of mg tablet 00:00: mouth [place] 00 every 6 Medical (six) Branch hours as needed for Nausea and Vomiting (N/V). dicyclomine 2022-0 Yes [id number] 20mg Take 1 Univers 20 mg 5-25 tablet by ity of tablet 00:00: mouth 4 [place] 00 (four) Medical times Branch daily as needed for Abdominal pain. metoclopram 2022-0 Yes [id number] 10mg Take 1 Univers leslie HCl 10 5-25 tablet by ity of mg tablet 00:00: mouth [place] 00 every 6 Medical (six) Branch hours as needed for Nausea and Vomiting (N/V). dicyclomine 2022-0 Yes [id number] 20mg Take 1 Univers 20 mg 5-25 tablet by ity of tablet 00:00: mouth 4 [place] 00 (four) Medical times Branch daily as needed for Abdominal pain. metoclopram 2022-0 Yes [id number] 10mg Take 1 Univers leslie HCl 10 5-25 tablet by ity of mg tablet 00:00: mouth [place] 00 every 6 Medical (six) Branch hours as needed for Nausea and Vomiting (N/V). ondansetron 2022-0 Yes [id number] 4mg Take 1 Univers 4 mg 5-18 tablet by ity of disintegrat 00:00: mouth [place] ing tablet 00 every 8 Medica l (eight) Branch hours as needed for Nausea and Vomiting (N/V). ondansetron 2022-0 Yes [id number] 4mg Take 1 Univers 4 mg 5-18 tablet by ity of disintegrat 00:00: mouth [place] ing tablet 00 every 8 Medica l (eight) Branch hours as needed for Nausea and Vomiting (N/V). ondansetron 2022-0 Yes [id number] 4mg Take 1 Univers 4 mg 5-18 tablet by ity of disintegrat 00:00: mouth [place] ing tablet 00 every 8 Medica l (eight) Branch hours as needed for Nausea and Vomiting (N/V). ondansetron 2022-0 Yes [id number] 4mg Take 1 Univers 4 mg 5-18 tablet by ity of disintegrat 00:00: mouth [place] ing tablet 00 every 8 Medica l (eight) Branch hours as needed for Nausea and Vomiting (N/V). ondansetron 2021-0 Yes [id number] 4mg Take 1 Univers 4 mg 5-18 tablet by ity of disintegrat 00:00: mouth [place] ing tablet 00 every 8 Medica l (eight) Branch hours as needed for Nausea and Vomiting (N/V). ondansetron 2021-0 Yes [id number] 4mg Take 1 Univers 4 mg 5-18 tablet by ity of disintegrat 00:00: mouth [place] ing tablet 00 every 8 Medica l (eight) Branch hours as needed for Nausea and Vomiting (N/V). ondansetron 2021-0 Yes [id number] 4mg Take 1 Univers 4 mg 5-18 tablet by ity of disintegrat 00:00: mouth [place] ing tablet 00 every 8 Medica l (eight) Branch hours as needed for Nausea and Vomiting (N/V). ondansetron 2021-0 Yes [id number] 4mg Take 1 Univers 4 mg 5-18 tablet by ity of disintegrat 00:00: mouth [place] ing tablet 00 every 8 Medica l (eight) Branch hours as needed for Nausea and Vomiting (N/V). albuterol albuterol No albuterol [facility] sulfate HFA sulfate HFA sulfate da 90 90 HFA 90 Medical mcg/actuati mcg/actuati mcg/actuat Group on aerosol on aerosol ion inhaler inhaler aerosol INHALE 2 INHALE 2 inhaler PUFFS BY PUFFS BY INHALE 2 MOUTH EVERY MOUTH EVERY PUFFS BY 4 TO 6 4 TO 6 MOUTH HOURS HOURS EVERY 4 TO NEEDED NEEDED 6 HOURS NEEDED bupropion bupropion No bupropion [facility] HCl XL 300 HCl XL 300 HCl XL 300 da mg 24 hr mg 24 hr mg 24 hr Med ical tablet, tablet, tablet, Group extended extended extended release release release TAKE 1 TAKE 1 TAKE 1 TABLET BY TABLET BY TABLET BY MOUTH EVERY MOUTH EVERY MOUTH DAY DAY EVERY DAY dicyclomine dicyclomine No dicyclomin [facility] 20 mg 20 mg e 20 mg da tablet prn tablet prn tablet prn Medical Group methocarbam methocarbam No methocarba [facility] ol 500 mg ol 500 mg mol 500 mg da tablet TAKE tablet TAKE tablet Medical 1 TABLET BY 1 TABLET BY TAKE 1 Group MOUTH 3 MOUTH 3 TABLET BY TIMES DAILY TIMES DAILY MOUTH 3 NEEDED NEEDED TIMES FOR PAIN FOR PAIN DAILY NEEDED FOR PAIN phentermine phentermine No phentermin [facility] 37.5 mg 37.5 mg e 37.5 mg da tablet TAKE tablet TAKE tablet Medical 1 TABLET BY 1 TABLET BY TAKE 1 Group MOUTH EVERY MOUTH EVERY TABLET BY DAY DAY MOUTH EVERY DAY Vital Signs Vital Name Observation Time Observation Value Comments Source BP Diastolic 2021-07-12 00:00:00 89 mm[Hg] [facility] Height 2021-07-12 00:00:00 [facility] BMI (Body Mass 2021-07-12 00:00:00 33.9 kg/m2 [facility] Medical Index) Group BP Systolic 2021-07-12 00:00:00 131 mm[Hg] [facility] Body Weight 2021-07-12 00:00:00 3408 [facility]_av[facility] BP Diastolic 2021-06-12 00:00:00 86 mm[Hg] [facility] Height 2021-06-12 00:00:00 66.5 [facility]i] [facility] BMI (Body Mass 2021-06-12 00:00:00 33.9 kg/m2 [facility] Medical Index) Group BP Systolic 2021-06-12 00:00:00 140 mm[Hg] [facility] Body Weight 2021-06-12 00:00:00 3415 [facility]av[facility] BP Diastolic 2021-04-26 00:00:00 88 mm[Hg] [facility] Height 2021-04-26 00:00:00 66.5 [in_i] [facility] BMI (Body Mass 2021-04-26 00:00:00 33.5 kg/m2 [facility] Medical Index) Group BP Systolic 2021-04-26 00:00:00 128 mm[Hg] [facility] Body Weight 2021-04-26 00:00:00 3376 [oz_av] [facility] BP Diastolic 2021-03-29 00:00:00 81 mm[Hg] [facility] Height 2021-03-29 00:00:00 66.5 [in_i] [facility] BMI (Body Mass 2021-03-29 00:00:00 33.6 kg/m2 [facility] Medical Index) Group BP Systolic 2021-03-29 00:00:00 143 mm[Hg] [facility] Body Weight 2021-03-29 00:00:00 3380 [oz_av] [facility] BP Diastolic 2021-02-19 00:00:00 96 mm[Hg] [facility] Height 2021-02-19 00:00:00 66.5 [in_i] [facility] BMI (Body Mass 2021-02-19 00:00:00 32 kg/m2 [facility] Medical Index) Group BP Systolic 2021-02-19 00:00:00 138 mm[Hg] [facility] Body Weight 2021-02-19 00:00:00 3216 [oz_av] [facility] BP Diastolic 2021-01-18 00:00:00 87 mm[Hg] [facility] Height 2021-01-18 00:00:00 66.5 [in_i] [facility] BMI (Body Mass 2021-01-18 00:00:00 32 kg/m2 [facility] Medical Index) Group BP Systolic 2021-01-18 00:00:00 123 mm[Hg] [facility] Body Weight 2021-01-18 00:00:00 3219 [oz_av] [facility] BP Diastolic 2020-12-21 00:00:00 82 mm[Hg] [facility] Height 2020-12-21 00:00:00 66.5 [in_i] [facility] BMI (Body Mass 2020-12-21 00:00:00 31.3 kg/m2 [facility] Medical Index) Group BP Systolic 2020-12-21 00:00:00 124 mm[Hg] [facility] Body Weight 2020-12-21 00:00:00 3152 [oz_av] [facility] BP Diastolic 2020-11-23 00:00:00 96 mm[Hg] [facility] Height 2020-11-23 00:00:00 66.5 [in_i] [facility] BMI (Body Mass 2020-11-23 00:00:00 30.8 kg/m2 [facility] Medical Index) Group BP Systolic 2020-11-23 00:00:00 134 mm[Hg] [facility] Body Weight 2020-11-23 00:00:00 3104 [oz_av] [facility] BP Diastolic 2020-10-19 00:00:00 85 mm[Hg] [facility] Height 2020-10-19 00:00:00 66.5 [in_i] [facility] BMI (Body Mass 2020-10-19 00:00:00 31.2 kg/m2 [facility] Medical Index) Group BP Systolic 2020-10-19 00:00:00 130 mm[Hg] [facility] Body Weight 2020-10-19 00:00:00 3136 [oz_av] [facility] BP Diastolic 2020-09-21 00:00:00 91 mm[Hg] [facility] Height 2020-09-21 00:00:00 66.5 [in_i] [facility] BMI (Body Mass 2020-09-21 00:00:00 31.3 kg/m2 [facility] Medical Index) Group BP Systolic 2020-09-21 00:00:00 132 mm[Hg] [facility] Body Weight 2020-09-21 00:00:00 3154 [oz_av] [facility] BP Diastolic 2020-08-24 00:00:00 89 mm[Hg] [facility] Height 2020-08-24 00:00:00 66.5 [in_i] [facility] BMI (Body Mass 2020-08-24 00:00:00 31.2 kg/m2 [facility] Medical Index) Group BP Systolic 2020-08-24 00:00:00 129 mm[Hg] [facility] Body Weight 2020-08-24 00:00:00 3141 [oz_av] [facility] BP Diastolic 2020-07-25 00:00:00 94 mm[Hg] [facility] Height 2020-07-25 00:00:00 66.5 [in_i] [facility] BMI (Body Mass 2020-07-25 00:00:00 31.8 kg/m2 [facility] Medical Index) Group BP Systolic 2020-07-25 00:00:00 138 mm[Hg] [facility] Body Weight 2020-07-25 00:00:00 3200 [oz_av] [facility] BP Diastolic 2020-06-22 00:00:00 93 mm[Hg] [facility] Height 2020-06-22 00:00:00 66.5 [in_i] [facility] BMI (Body Mass 2020-06-22 00:00:00 32.1 kg/m2 [facility] Medical Index) Group BP Systolic 2020-06-22 00:00:00 132 mm[Hg] [facility] Body Weight 2020-06-22 00:00:00 3233 [oz_av] [facility] BP Diastolic 2020-05-25 00:00:00 97 mm[Hg] [facility] Height 2020-05-25 00:00:00 66.5 [in_i] [facility] BMI (Body Mass 2020-05-25 00:00:00 32.8 kg/m2 [facility] [employer] Medical Index) Group BP Systolic 2020-05-25 00:00:00 134 mm[Hg] [facility] Body Weight 2020-05-25 00:00:00 3304 [oz_av] [facility] BP Diastolic 2020-04-26 00:00:00 88 mm[Hg] [facility] Height 2020-04-26 00:00:00 66.5 [in_i] [facility] BMI (Body Mass 2020-04-26 00:00:00 34 kg/m2 [facility] Medical Index) Group BP Systolic 2020-04-26 00:00:00 133 mm[Hg] [facility] Body Weight 2020-04-26 00:00:00 3426 [oz_av] [facility] BP Diastolic 2020-03-28 00:00:00 88 mm[Hg] [facility] Height 2020-03-28 00:00:00 66.5 [in_i] [facility] BMI (Body Mass 2020-03-28 00:00:00 35.3 kg/m2 [facility] Medical Index) Group BP Systolic 2020-03-28 00:00:00 139 mm[Hg] [facility] Body Weight 2020-03-28 00:00:00 3553 [oz_av] [facility] BP Diastolic 2019-09-02 00:00:00 90 mm[Hg] [facility] Height 2019-09-02 00:00:00 66.5 [in_i] [facility] BMI (Body Mass 2019-09-02 00:00:00 34.7 kg/m2 [facility] Medical Index) Group BP Systolic 2019-09-02 00:00:00 135 mm[Hg] [facility] Body Weight 2019-09-02 00:00:00 3489 [oz_av] [facility] BP Diastolic 2019-07-01 00:00:00 86 mm[Hg] [facility] Height 2019-07-01 00:00:00 66.5 [in_i] [facility] BMI (Body Mass 2019-07-01 00:00:00 34.2 kg/m2 [facility] Medical Index) Group BP Systolic 2019-07-01 00:00:00 133 mm[Hg] [facility] Body Weight 2019-07-01 00:00:00 3440 [oz_av] [facility] BP Diastolic 2019-06-03 00:00:00 89 mm[Hg] [facility] Height 2019-06-03 00:00:00 66.5 [in_i] [facility] BMI (Body Mass 2019-06-03 00:00:00 34.1 kg/m2 [facility] Medical Index) Group BP Systolic 2019-06-03 00:00:00 132 mm[Hg] [facility] Body Weight 2019-06-03 00:00:00 3431 [oz_av] [facility] BP Diastolic 2019-05-05 00:00:00 86 mm[Hg] [facility] Height 2019-05-05 00:00:00 66.5 [in_i] [facility] BMI (Body Mass 2019-05-05 00:00:00 34.2 kg/m2 [facility] Medical Index) Group BP Systolic 2019-05-05 00:00:00 133 mm[Hg] [facility] Body Weight 2019-05-05 00:00:00 3440 [oz_av] [facility] BP Diastolic 2019-04-01 00:00:00 91 mm[Hg] [facility] Height 2019-04-01 00:00:00 66.5 [in_i] [facility] BMI (Body Mass 2019-04-01 00:00:00 33.7 kg/m2 [facility] Medical Index) Group BP Systolic 2019-04-01 00:00:00 134 mm[Hg] [facility] Body Weight 2019-04-01 00:00:00 3392 [oz_av] [facility] BP Diastolic 2019-03-04 00:00:00 87 mm[Hg] [facility] Height 2019-03-04 00:00:00 66.5 [in_i] [facility] BMI (Body Mass 2019-03-04 00:00:00 34.2 kg/m2 [facility] Medical Index) Group BP Systolic 2019-03-04 00:00:00 126 mm[Hg] [facility] Body Weight 2019-03-04 00:00:00 3440 [oz_av] [facility] BP Diastolic 2018-12-31 00:00:00 84 mm[Hg] [facility] Height 2018-12-31 00:00:00 66.5 [in_i] [facility] BMI (Body Mass 2018-12-31 00:00:00 32.8 kg/m2 [facility] Medical Index) Group BP Systolic 2018-12-31 00:00:00 120 mm[Hg] [facility] Body Weight 2018-12-31 00:00:00 3296 [oz_av] [facility] BP Diastolic 2018-11-26 00:00:00 92 mm[Hg] [facility] Height 2018-11-26 00:00:00 66.5 [in_i] [facility] BMI (Body Mass 2018-11-26 00:00:00 32.6 kg/m2 [facility] Medical Index) Group BP Systolic 2018-11-26 00:00:00 136 mm[Hg] [facility] Body Weight 2018-11-26 00:00:00 3280 [oz_av] [facility] BP Diastolic 2018-11-04 00:00:00 92 mm[Hg] [facility] Height 2018-11-04 00:00:00 66.5 [in_i] [facility] BMI (Body Mass 2018-11-04 00:00:00 32.9 kg/m2 [facility] Medical Index) Group BP Systolic 2018-11-04 00:00:00 132 mm[Hg] [facility] Body Weight 2018-11-04 00:00:00 3312 [oz_av] [facility] BP Diastolic 2018-10-29 00:00:00 83 mm[Hg] [facility] Height 2018-10-29 00:00:00 66.5 [in_i] [facility] BMI (Body Mass 2018-10-29 00:00:00 32.9 kg/m2 [facility] Medical Index) Group BP Systolic 2018-10-29 00:00:00 128 mm[Hg] [facility] Body Weight 2018-10-29 00:00:00 3315 [oz_av] [facility] BP Diastolic 2018-09-24 00:00:00 106 mm[Hg] [facility] Height 2018-09-24 00:00:00 66.5 [in_i] [facility] BMI (Body Mass 2018-09-24 00:00:00 31.5 kg/m2 [facility] Medical Index) Group BP Systolic 2018-09-24 00:00:00 141 mm[Hg] [facility] Body Weight 2018-09-24 00:00:00 3169 [oz_av] [facility] BP Diastolic 2018-08-25 00:00:00 91 mm[Hg] [facility] Height 2018-08-25 00:00:00 66.5 [in_i] [facility] BMI (Body Mass 2018-08-25 00:00:00 31.8 kg/m2 [facility] [employer] Medical Index) Group BP Systolic 2018-08-25 00:00:00 136 mm[Hg] [facility] Body Weight 2018-08-25 00:00:00 3201 [oz_av] [facility] BP Diastolic 2018-07-23 00:00:00 89 mm[Hg] [facility] Height 2018-07-23 00:00:00 66.5 [in_i] [facility] BMI (Body Mass 2018-07-23 00:00:00 31.7 kg/m2 [facility] BP Systolic 2018-07-23 00:00:00 123 mm[Hg] [facility] Body Weight 2018-07-23 00:00:00 3191 [oz_av] [facility] Procedures Procedure Date / Time Performing Source Performed Clinician BCCS-RELATED DOCUMENTATION 2022-03-13 Doctor Unive rsity of 05:01:00 Unassigned, No [place] [facility] Name Branch MRI, cervical spine, w/o contrast 2020-11-23 [facility] 00:00:00 Group MAMMO, screening, digital, 2020-03-28 [facility] bilateral 00:00:00 Group Esophagogastroduodenoscopy 2019-02-06 [facility] 00:00:00 Group Colonoscopy 2019-01-29 [facility] 00:[facility]:00 Group Ankle Arthroscopy/surgery 2018-01-29 [employer] Medical 00:00:00 Group Colonoscopy 2014-07-14 [facility] 00:[facility]:00 Group Back Surgery 1998-07-14 [facility] 00:00:00 Group Breast Procedure [facility] Encounters Start End Encounter Admission Attending Care Care Encounter Source Date/Time Date/Time Type Type Clinicians Facility Department ID 2021-05-15 Emergency [facility] [id number] Univers 03:20:56 ity of [facility] 2021-05-13 Emergency [facility] [id number] Univers 18:17:35 ity of [facility] 2021-05-13 Emergency [facility] [id number] Univers 09:23:36 ity of [facility] 2020-10-11 Inpatient Desiree Villanueva [facility] [id number] [facility] 11:56:01 [facility] 2022-04-02 2022-04-02 Outpatient R AKINSIPE, [facility] [id number] Univers 00:00:00 00:00:00 ELISHA ity o [facility] 2022-04-02 2022-04-02 Outpatient R AKINSIPE, [facility] [id number] Univers 00:00:00 00:00:00 ELISHA nievesy o f [facility] 2022-03-19 2022-03-19 Telephone [facility] 1.2.840.114 [id number] Univers 00:00:00 00:00:00 Elisha C CENTER MANAGER 350.1.13.10 ity of [facility] 4.2.7.2.686 Aditya as MATERNAL [id number] Med ical & CHILD [address] [place] [address] 2022-03-14 2022-03-14 [facility] [id number] Univers 08:15:00 08:15:00 ELISHA ity o f [facility] 2022-03-14 2022-03-14 Outpatient R AKINSIPE, [facility] [id number] Univers 08:00:00 08:00:00 ELISHA ity o f [facility] 2022-03-14 2022-03-14 Letter [facility] [id number] Univers 00:00:00 00:00:00 (Out) Elisha Vargas CENTER MANAGER 350.1.13.10 ity of [facility] 4.2.7.2.686 Aditya as MATERNAL [id number] Med ical & CHILD [address] [place] [address] 2022-03-13 2022-03-13 Orders Doctor RAMÍREZ 1.2.840.[id number] [place] [address] 00:00:00 00:00:00 Only Unassigned, ALEJANDRO 350.1.13.[address] 4.2.7.2.686 Aditya as [id number] [address] 2022-03-07 2022-03-07 Outpatient Zuniga_Eliseo MMG [facility]G [id number] [place] 00:00:00 00:00:00 825 Medical Group 2022-03-06 2022-03-06 Telephone [facility] 1.2.840.114 [id number] Univers 00:00:00 00:00:00 Elisha C CENTER MANAGER 350.1.13.10 ity of [facility] 4.2.7.2.686 Aditya as MATERNAL [id number] [facility] ical & CHILD [address] [place] [address] 2022-03-06 2022-03-06 Telephone Akinsipe, PAMB 1.2.840.114 [id number] Univers 00:00:00 00:00:00 Elisha C CENTER MANAGER 350.1.13.10 ity of [facility] 4.2.7.2.686 Aditya as MATERNAL [id number] [facility] & CHILD [address] [place] [address] 2022-03-05 2022-03-05 Telephone Akinpe, PAMB 1.2.840.114 [id number] Univers 00:00:00 00:00:00 Elisha C CENTER MANAGER 350.1.13.10 ity of REGIONAL 4.2.7.2.686 Aditya as MATERNAL [id number] [facility] ical & CHILD [address] [place] [address] 2022-03-05 2022-03-05 Telephone Akinsipe, PAMB 1.2.840.114 [id number] Univers 00:00:00 00:00:00 Elisha C CENTER MANAGER 350.1.13.10 ity of REGIONAL 4.2.7.2.686 Aditya as MATERNAL [id number] [facility] ical & CHILD [address] [place] [address] 2022-03-04 2022-03-04 Telephone Akinsipe, PAMB 1.2.840.114 [id number] Univers 00:00:00 00:00:00 Elisha C CENTER MANAGER 350.1.13.10 ity of [facility] 4.2.7.2.686 Aditya as MATERNAL [id number] [address] 2022-03-01 2022-03-01 Outpatient R [facility] [id number] Univers 10:30:00 11:40:11 ELISHA harris o [facility] 2022-03-01 2022-03-01 Office [facility] 1.2.391.702 [id number] Univers 10:30:00 11:40:[address] [facility] CENTER MANAGER 350.1.13.10 ity [facility] 4.2.7.2.686 Aditya as MATERNAL [id number] [address] 2022-03-01 2022-03-01 Outpatient R [facility] [id number] Univers 10:30:00 11:40:11 ELISHA iglesias [facility] 2022-03-01 2022-03-01 Orders Doctor RAMÍREZ 1.2.840.114 [id number] Univers 00:00:00 00:00:00 Only Unassigned, ALEJANDRO 350.1.13.[address] 4.2.7.2.686 Aditya as [id number] [facility] [address] [place] 2021-12-05 2021-12-05 Emergency X EDMUNDO [facility] ERT [id number] Univers 11:02:00 13:38:00 MARIANA iglesias [facility] 2021-12-05 2021-12-05 Emergency Edmundo [facility] 1.2.468.726 [id number] Univers 11:02:00 13:38:00 Mariana Elkins [place] 350.1.13.10 i ty of [place] 4.2.7.2.686 [facility] [facility] [id number] [facility] [address] [place] 2021-11-28 2021-11-28 Emergency X EVANS [facility] ERT [id number] Univers 09:10:00 11:07:00 MICHELLE iglesias [facility] 2021-11-28 2021-11-28 Emergency Evans [place] 1.2.840.114 [id number] Univers 09:10:00 11:07:00 Michelle DE LA TORRE 350.1.13.10 ity [facility] 4.2.7.2.686 [facility] [id number] [address] 2021-10-05 2021-10-05 Emergency X [facility] ERT [id number] Univers 05:41:00 07:28:00 NURYS iglesias [facility] 2021-10-05 2021-10-05 [facility] 1.2.270.104 [id number] Univers 05:41:00 07:28:00 Nurys LERMASABAS 350.1.13.10 i ty [facility] 4.2.7.2.686 [facility] [id number] [address] 2021-09-18 2021-09-19 Emergency [facility] E[facility] [id number] Univers 20:08:00 01:15:00 [facility] 2021-09-18 2021-09-19 [facility] 1.2.235.121 [id number] Univers 20:08:00 01:15:00 Deepakjaswant Brittni LERMASABAS 350.1.13.10 ity [facility] 4.2.7.2.686 [facility] [id number] [address] 2021-07-18 2021-07-18 Outpatient Zuniga_F [facility] [id number] [place] 04:06:00 04:06:00 105 [facility] 2021-07-12 2021-07-12 Cheng Basilioa_F [facility] [place] - 4879-202 11 [place] 00:00:00 00:00:00 Peewee Lopez 230 Jcarlos Martinez Medical : [address] [place] [address] [address], [place] [address] , Ph. 2021-06-24 2021-06-24 Emergency X CRISTHIANMAISHA [facility] ERT [id number] Univers 09:56:00 12:35:00 NAZARIO iglesias [facility] 2021-06-24 2021-06-24 Emergency [facility] 1.2.840.114 [id number] Univers 09:56:00 12:35:00 Nazario LERMASABAS 350.1.13.10 i ty of [place] 4.2.7.2.686 [place] [facility] [id number] [facility] agnieszka 084 [address] 2021-06-24 2021-06-24 Orders Doctor DESIREE 1.2.840.114 [id number] Univers 00:00:00 00:00:00 Only Unassigned, ALEJANDRO 350.1.13.10 ity of [facility] 4.2.7.2.686 Aditya [id number] [facility] 009 [address] 2021-06-12 2021-06-12 Cheng Basilioa_F [facility] [place] - 4879- 11 [place] 00:00:00 00:00:00 Peewee Lopez 130 Jcarlos Martinez MD: 600 [facility] [address], [place] [address] , Ph. 2021-05-03 2021-05-03 Emergency [facility] 1.2.812.976 [id number] Univers 06:07:00 09:48:00 Domenico De La Torre 350.1.13.10 ity [facility] 4.2.7.2.686 [facility] [id number] [facility] 084 Branch 2021-05-03 2021-05-03 Emergency X [facility] ERT [id number] Univers 06:07:00 09:48:00 DOMENICO ity [facility] 2021-04-30 2021-04-30 Outpatient Zunchucka_F [facility] [id number] [place] 04:00:00 04:00:00 018 [facility] 2021-04-26 2021-04-26 Cheng Basilioa_F [facility] [place] - 4879-202 11 [place] 00:00:00 00:00:00 Peewee Lopez 014 Jcarlos Martinez MD: [address] [place] [address] [address], [place] [address] , Ph. 2021-04-14 2021-04-14 [facility] 1.2.840.114 [id number] Univers 19:08:00 22:35:00 Shalonda De La Torre 350.1.13.10 i [facility] 4.2.7.2.686 [facility] [id number] [facility] 084 [address] 2021-03-29 2021-03-29 Cheng Zuniga_F [facility] [place] - 4879-202 10 [place] 00:00:00 00:00:00 Peewee Lopez 916 Jcarlos Martinez MD: [address] [place] [address] 201, [place] [address] , Ph. 2021-03-21 2021-03-21 Outpatient Zuniga_F MMG [facility] [id number] [place] 10:10:00 10:10:00 908 da [facility] 2021-03-07 2021-03-07 Outpatient Zuniga_F MMG [facility] [id number] [id number] [place] 09:18:00 09:18:00 825 da [facility] 2021-02-19 2021-02-19 Vivian Robbins [facility] [place] - [id number] [place] 00:00:00 00:00:00 Discovery Itzel 809 da NATIONAL RECRUITER: [address] [place] [address] 201[facility] [address] , Ph. 2021-02-14 2021-02-14 Outpatient Zuniga_F MMG MM [id number] [id number] [place] 04:43:00 04:43:00 804 refugio [facility] 2021-01-18 2021-01-18 Cheng Zuniga_F [facility] [place] - 4879-202 10 [place] 00:00:00 00:00:00 Peewee Lopez 708 Jcarlos Martinez MD: [address] [place] [address] 201, [place] [address] , Ph. 2021-01-08 2021-01-08 Outpatient Zuniga_F MMG [facility] [id number] [place] 12:18:00 12:18:00 628 Medical Group 2020-12-21 2020-12-21 Cheng Zuniga_F [facility] [place] - 4879-202 10 [place] 00:00:00 00:00:00 Peewee Lopez 610 Jcarlos Martinez Medical MD: 600 [facility] 201, [place] [address] , Ph. 2020-12-05 2020-12-05 Outpatient Zuniga_F MMG MMG [id number] [id number] [place] 01:02:00 01:02:00 525 Medical Group 2020-11-29 2020-11-29 Outpatient Zuniga_F MMG MMG [id number] [id number] [place] 09:20:00 09:20:00 519 Medical Group 2020-11-23 2020-11-23 Cheng Zuniga_F [facility] [place] - 4879-202 10 [place] 00:00:00 00:00:00 Peewee Lopez 513 Jcarlos Martinez Medical MD: 600 [facility] 201, [place] [address] , Ph. 2020-10-19 2020-10-19 Cheng Zuniga_F [facility] [place] - 4879-202 10 [place] 00:00:00 00:00:00 Peewee Lopez 408 Jcarlos Martinez Medical MD: 600 [facility] 201, [place] [address] , Ph. 2020-10-10 2020-10-10 Emergency [facility] 1.2.235.176 [id number] 07:42:00 09:16:00 Tye [place] 350.1.13.10 [place] 4.2.7.2.686 [place] [id number] 084 2020-10-102020-10-10 Orders Doctor DESIREE 1.2.840.114 [id number] 00:00:00 00:00:00 Only Unassigned, ALEJANDRO 350.1.13.[address] [facility] [facility] 4.2.7.2.686 [id number] 009 2020-09-21 2020-09-21 Cheng Zuniga_F MM [place] - 4879-202 10 [place] 00:00:00 00:00:00 Peewee Lopez 311 ref[facility]io [facility] MD: [address] [place] [address], [place] [address] , Ph. 2020-08-24 2020-08-24 Cheng Mosheruniga_F MM [place] - 4879-202 10 [place] 00:00:00 00:00:00 Peewee Lopez 211 Jcarlos Martinez Medical MD: [address] [place] [address] , Ph. 2020-07-25 2020-07-25 Vivian Vidhiuniga_F MM [place] - 2223-1512 0 [place] 00:00:00 00:00:00 Discovery Itzel 112 da NATIONAL RECRUITER: [address] [place] [address] , Ph. 2020-06-22 2020-06-22 Cheng Zuniga_F MM [place] - 4879-202 01 [place] 00:00:00 00:00:00 Peewee Lopez 210 Jcarlos Martinez Medical MD: [address] [place] [address] , Ph. 2020-05-31 2020-05-31 Outpatient Zuniga_F MMG [facility] [id number] [place] 02:49:00 02:49:00 118 da [facility] 2020-05-25 2020-05-25 Cheng Zuniga_F MM [place] - 4879-202 01 [place] 00:00:00 00:00:00 Peewee Lopez 112 refugio [facility] MD: 600 [facility] 201, [place] [address] , Ph. 2020-05-23 2020-05-23 Outpatient Zuniga_F MMG MMG [id number] [place] 03:37:00 03:37:00 110 da Medical Group 2020-04-26 2020-04-26 Cheng Zuniga_F [facility] [place] - 4879- [place] 00:00:00 00:00:00 Peewee Lopez 014 refugio [facility] Medical MD: 600 [facility] 201, [place] [address] , Ph. 2020-04-21 2020-04-21 Outpatient Zuniga_F MMG MMG [id number] [place] 02:59:00 02:59:00 009 Medical Group 2020-03-28 2020-03-28 Cheng Zuniga_F [facility] [place] - 4879- 00 [place] 00:00:00 00:00:00 Peewee Lopez 915 refugio [facility] MD: 600 [facility] 201, [place] [address] , Ph. 2020-01-04 2020-01-04 Outpatient Zuniga_F MMG MMG [id number] [place] 11:21:00 11:21:00 623 da Medical Group 2020-01-03 2020-01-03 Outpatient Zuniga_F MMG MMG [id number] [place] 09:49:00 09:49:00 622 da Medical Group 2019-11-10 2019-11-10 Outpatient Zuniga_F MMG MMG [id number] [place] 12:41:00 12:41:00 429 da Medical Group 2019-11-09 2019-11-09 Cheng Zuniga_F [facility] [place] - 4879-202 00 [place] 00:00:00 00:00:00 Peewee Lopez 428 Jcarlos Martinez MD: 600 [facility] [address], [place] [address] , Ph. 2019-09-15 2019-09-15 Emergency Burrell, [facility] [id number] [id number] 09:16:27 11:22:00 Nurys De La Torre 350.1.13.10 [place] 4.2.7.2.686 [place] [id number] 084 2019-09-15 2019-09-15 Emergency X BURRELL, [facility] ERT [id number] Univers 09:16:27 11:22:00 NURYS iglesias [facility] 2019-09-02 2019-09-02 Cheng Pacheco_F [facility] [place] - 4879- 00 [place] 00:00:00 00:00:00 Peewee Lopez 220 Jcarlos Martinez MD: [address] [place] [address] [address], [place] [address] , Ph. 2019-08-11 2019-08-11 Hospital Radiology [facility] 1.2.840.114 [id number] 14:30:00 23:59:00 Finn De La Torre 350.1.13.10 [place] 4.2.7.2.686 [place] [id number] 807 2019-07-01 2019-07-01 Cheng BROWNING [place] - 4158-5737 1 [place] 00:00:00 00:00:00 Peewee Lopez 219 Jcarlos Martinez MD: 600 [facility] [address], [place] [address] , Ph. 2019-06-03 2019-06-03 Cheng BROWNING [place] - 8342-5732 1 [place] 00:00:00 00:00:00 Peewee Lopez 121 Jcarlos Martinez MD: 600 [facility] [address], [place] [address] , Ph. 2019-05-05 2019-05-05 Cheng BROWNING [place] - 2999-2483 1 [place] 00:00:00 00:00:00 Peewee Lopez 023 Jcarlos Martinez MD: [address] [place] [address] 201, [place] [address] , Ph. 2019-04-01 2019-04-01 Cheng MMG [place] - 2593-6672 0 [place] 00:00:00 00:00:00 Peewee Lopez 919 Jcarlos Martinez MD: [address] [place] [address] 201, [place] [address] , Ph. 2019-03-12 2019-03-12 Emergency [facility] 1.2.037.992 [id number] 09:02:28 09:49:00 Nurys De La Torre 350.1.13.10 [place] 4.2.7.2.686 [place] [id number] 084 2019-03-04 2019-03-04 Cheng BROWNINGG [place] - 8051-1380 0 [place] 00:00:00 00:00:00 Peewee Lopez 822 Jcarlos Martinez MD: [address] [place] [address] 201, [place] [address] , Ph. 2018-12-31 2018-12-31 Cheng MMG [place] - 8225-2608 0 [place] 00:00:00 00:00:00 Peewee Lopez 620 Jcarlos Martinez MD: [address] [place] [address] [address], [place] [address] , Ph. 2018-11-26 2018-11-26 Cheng MMG [place] - 5196-4656 0 [place] 00:00:00 00:00:00 Peewee Lopez 516 Jcarlos Martinez MD: [address] [place] [address] [address], [place] [address] , Ph. 2018-11-04 2018-11-04 Cheng MM [place] - 8256-2508 0 [place] 00:00:00 00:00:00 Peewee Lopez 424 Jcarlos Martinez Medical MD: [address] [place] [address] Family [address], [place] [address] , Ph. 2018-10-29 2018-10-29 [facility] [place] - 3034-5219 0 [place] 00:00:00 00:00:00 Peewee Lopez 418 Jcarlos Martinez Medical MD: [address] [place] [address] [address], [place] [address] , Ph. 2018-09-24 2018-09-24 [facility] [place] - 0794-5547 0 [place] 00:00:00 00:00:00 Peewee Lopez 314 Jcarlos Martinez Medical MD: [address] [place] [address] [address], [place] [address] , Ph. 2018-08-25 2018-08-25 Cheng MMG [place] - 4174-1353 0 [place] 00:00:00 00:00:00 Peewee Lopez 212 Jcarlos Martinez MD: [address] [place] [address] [address], [place] [address] , Ph. 2018-07-23 2018-07-23 Cheng MMG [place] - 0821-9303 0 [place] 00:00:00 00:00:00 Peewee Lopez 110 Jcarlos Martinez Medical MD: [address] [place] [address], Family [address], [place] [address] , Ph. 2018-06-25 2018-06-25 Cheng MMG [place] - 0855-8885 1 [place] 00:00:00 00:00:00 Peewee Lopez 213 Jcarlos Martinez Medical MD: [address] [place] [address], Family [address], [place] [address] , Ph. Results Test Description Test Time Test Comments Results Result [facility] e Comments - US PELVIS 2020-10-12 COMPLETE 15:29:00 [facility] : 1975 Sex: F * Patient Name: BEATRIZ BONNER Unit No: [id number] EXAMS: CPT CODE: [id number] US PELVIS COMPLETE 46892 CLINICAL HISTORY: Menorrhagia Real-time ultrasound examination of the pelvis was performed using transabdominal and endovaginal approach. Doppler evaluation of both ovaries was also performed. The uterus measures 9.1 x 5.3 x 5.8 cm in greatest dimensions with endometrium measuring 13 mm in AP dimension. No focal endometrial abnormality is noted. There is no evidence of uterine fibroid or other significant uterine abnormality. The right ovary measures 49 x 30 x 40 mm and contains a follicle measuring 35 x 25 x 34 mm. Blood flow is identified in the right ovary. The left ovary measures 26 x 11 x 15 mm and has normal sonographic appearance. Blood flow is identified in the left ovary. No extraovarian mass is noted. There is no significant free fluid in the pelvis. IMPRESSION: 1. Endometrium measuring 13 mm in AP dimension without focal abnormality or uterine fibroid. 2. No adnexal pathology is seen. at 1529 Reported and signed by: Evangelista Tariq MD CC: Desiree Villanueva III, MD Technologist: Bradford Feliz RDMS Probe: Trnscrbd D/ (1529) NaYOS Orig Print D/T: S: 10/12/2020 (1532) [facility] NAME: BEATRIZ BONNER MANSI Radiology Department PHYS: Desiree Lemon III, MD [address] : 1975 AGE: 45 SEX: F [place] [address] LOC: F.RAD PHONE #: [phone] EXAM DATE: 10/12/2020 STATUS: REG CLI FAX #: [phone] RAD NO: Page 1 Signed Report Patient Name: BEATRIZ BONNER Unit No: [id number] EXAMS: CPT CODE: [id number] US PELVIS COMPLETE 50266 (Continued) [facility] NAME: BONNER,BEATRIZALICIA NAZARIO Radiology Department PHYS: Desiree Lemon III, MD [address] : 1975 AGE: 45 SEX: F [place] [address] LOC: F.RAD PHONE #: [phone] EXAM DATE: 10/12/2020 STATUS: REG CLI FAX #: [phone] RAD NO: Page 2 Signed Report - US TRANSVAGINAL 2020-10-12 W/PELVIS 15:29:00 [facility] : 1975 Sex: F * Patient Name: BEATRIZ BONNER Unit No: [id number] EXAMS: CPT CODE: [id number] US TRANSVAGINAL W/PELVIS 92287 CLINICAL HISTORY: Menorrhagia Real-time ultrasound examination of the pelvis was performed using transabdominal and endovaginal approach. Doppler evaluation of both ovaries was also performed. The uterus measures 9.1 x 5.3 x 5.8 cm in greatest dimensions with endometrium measuring 13 mm in AP dimension. No focal endometrial abnormality is noted. There is no evidence of uterine fibroid or other significant uterine abnormality. The right ovary measures 49 x 30 x 40 mm and contains a follicle measuring 35 x 25 x 34 mm. Blood flow is identified in the right ovary. The left ovary measures 26 x 11 x 15 mm and has normal sonographic appearance. Blood flow is identified in the left ovary. No extraovarian mass is noted. There is no significant free fluid in the pelvis. IMPRESSION: 1. Endometrium measuring 13 mm in AP dimension without focal abnormality or uterine fibroid. 2. No adnexal pathology is seen. at 1529 Reported and signed by: Evangelista Tariq MD CC: Desiree Villanueva III, MD Technologist: Bradford Feliz RDSC Probe: [id number] Trnscrbd D/ (1529) t.ISABELRJoseYOS Orig Print D/T: S: 10/12/2020 (1532) [facility] NAME: BEATRIZ BONNER Radiology Department PHYS: Desiree Lemon III, MD [address] : 1975 AGE: 45 SEX: F [place], [place] [address] LOC: Eliseo.RAD PHONE #: [phone] EXAM DATE: 10/12/2020 STATUS: REG CLI FAX #: [phone] RAD NO: Page 1 Signed Report Patient Name: BEATRIZ BONNER Unit No: [id number] EXAMS: CPT CODE: [id number] US TRANSVAGINAL W/PELVIS 94919 (Continued) [facility] NAME: BEATRIZ BONNER Radiology Department PHYS: Desiree Lemon III, MD [address] : 1975 AGE: 45 SEX: F [place], [place] [address] LOC: Eliseo.RAD PHONE #: [phone] EXAM DATE: 10/12/2020 STATUS: REG CLI FAX #: [phone] RAD NO: Page 2 Signed Report - DUP AB/PEL/SC/LTD 2020-10-12 15:29:00 [facility] : 1975 Sex: F * Patient Name: BEATRIZ BONNER Unit No: [id number] EXAMS: CPT CODE: [id number] DUP AB/PEL/SC/LTD 78583 CLINICAL HISTORY: Menorrhagia Real-time ultrasound examination of the pelvis was performed using transabdominal and endovaginal approach. Doppler evaluation of both ovaries was also performed. The uterus measures 9.1 x 5.3 x 5.8 cm in greatest dimensions with endometrium measuring 13 mm in AP dimension. No focal endometrial abnormality is noted. There is no evidence of uterine fibroid or other significant uterine abnormality. The right ovary measures 49 x 30 x 40 mm and contains a follicle measuring 35 x 25 x 34 mm. Blood flow is identified in the right ovary. The left ovary measures 26 x 11 x 15 mm and has normal sonographic appearance. Blood flow is identified in the left ovary. No extraovarian mass is noted. There is no significant free fluid in the pelvis. IMPRESSION: 1. Endometrium measuring 13 mm in AP dimension without focal abnormality or uterine fibroid. 2. No adnexal pathology is seen. at 1529 Reported and signed by: Evangelista Tariq MD CC: Desiree Villanueva III, MD Technologist: Bradford Feliz RDMS Probe: Trnscrbd D/ (1529) t.SDR.YOS Orig Print D/T: S: 10/12/2020 (1532) [facility] NAME: BEATRIZ BONNER Radiology Department PHYS: Desiree Lemon III, MD [address] : 1975 AGE: 45 SEX: [place] [address] LOC: RosieRAD PHONE #: [phone] EXAM DATE: 10/12/2020 STATUS: REG CLI FAX #: [phone] RAD NO: Page 1 Signed Report Patient Name: BEATRIZ BONNER Unit No: [id number] EXAMS: CPT CODE: [id number] DUP AB/PEL/SC/LTD 65529 (Continued) [facility] NAME: BEATRIZ BONNER Radiology Department PHYS: Desiree Lemon III, MD [address] : 1975 AGE: 45 SEX: F [place] [address] LOC: RosieRAD PHONE #: [phone] EXAM DATE: 10/12/2020 STATUS: REG CLI FAX #: [phone] RAD NO: Page 2 Signed Report CBC W Auto Differential panel - Blood 2020-04-05 07:03:00 Test Item Value Reference Range Interpretation Comme nts white blood count (test code = white blood count) 4.4 K/uL 4.0- 11.5 red blood count (test code = red blood count) 4.29 M/uL 3.80-5.2 0 hemoglobin (test code = hemoglobin) 13.0 g/dL 10.5-15.7 hematocrit (test code = hematocrit) 40.2 % 34.0-50.0 MCV [Entitic volume] (test code = 78053-2) 93.7 fL 86-100 mean corpuscular hemoglobin (test code = mean corpuscular 30.3 pg 26.2-33.4 hemoglobin) mean corpuscular HGB conc (test code = mean corpuscular HGB 32.3 g/ dL 30-34 conc) red cell distribution width (test code = red cell 12.5 % 12.0 -15.5 distribution width) platelet count (test code = platelet count) 325 K/uL 165-450 mean platelet volume (test code = mean platelet volume) 9.1 fL 9.4-12.6 L Segmented neutrophils/100 leukocytes in Blood (test code = 53.8 % 44.4-80.1 06200-7) Immature granulocytes [#/volume] in Blood (test code = 0.0 K/uL 0.0-0.03 H 40185-5) lymphocyte% (test code = lymphocyte%) 33.1 % 10.0-50.0 mono % (test code = mono %) 9.0 % 3.6-12.0 eos % (test code = eos %) 1.8 % 0.0-5.4 Basophils/100 leukocytes in Unspecified specimen (test code 1.8 % 0.1-1.2 H = 17610-0) Band form neutrophils [#/volume] in Blood (test code = 2.34 K/uL 1.56-6.13 79461-8) Lymphocytes [#/volume] in Unspecified specimen by Automated 1.4 K/u L 1.18-3.74 count (test code = 32366-9) mono # (test code = mono #) 0.39 K/uL 0.24-0.86 eos # (test code = eos #) 0.08 K/uL 0.04-0.36 basophil # (test code = basophil #) 0.08 K/uL 0.01-0.08 NRBC% (test code = NRBC%) 0 /100 WBC 0-0.2 NRBC# (test code = NRBC#) 0 K/uL [facility] unspecified - [id number] 07:03:00NeutrophilsBandLymphocyteAtypical LymphMonocyteEosinophilBasophilMetamyelocytePlatelet EstimatePlatelet MorphologyHypochromasiaPoikilocytosisAnisocytosisMicrocytosisOvalocytesToxic GranulationHypersegmented PolysToxic VacuolationSmudge CellsGiant PlateletsDifferential comment-PMaBatson Children's HospitalHemoglobin A1c [Mass/volume] in [id number] 07:03:00 Test Item Value Reference Range Interpretation Comments Hemoglobin A1c [Mass/volume] in Blood 5.2 % 4.0-6.0 (test code = 89022-7) [facility] 2000 [facility] - Serum or Plasma 2020-04-05 07:03:00 Test Item Value Reference Range Interpretation Comments Glucose [Mass/volume] in Serum or 82 mg/dL 74-106 Plasma (test code = 2345-7) Urea nitrogen [Mass/volume] in 10 mg/dL 6-20 Serum or Plasma (test code = 3094-0) osmolality calculated,serum (test 272 mOsm/kg 280-300 L code = osmolality calculated,serum) creatinine (test code = 0.6 mg/dL 0.50-0.90 creatinine) glomerular filtration rate (test >60.00 code = glomerular filtration rate) Urea nitrogen/Creatinine [Mass 16.7 12-20 Ratio] in Serum or Plasma (test code = 3097-3) sodium level (test code = sodium 137 mmol/L 135-145 level) potassium level (test code = 4.2 mmol/L 3.5-5.2 potassium level) chloride level (test code = 102 mmol/L 98-108 chloride level) CO2 (test code = CO2) 25 mmol/L 21-32 anion gap (test code = anion gap) 14.2 mEq/L 12-20 calcium level (test code = 9.7 mg/dL 8.6-10.0 calcium level) total protein (test code = total 7.5 g/dL 6.6-8.7 protein) albumin (test code = albumin) 4.5 g/dL 3.5-5.2 globulin (test code = globulin) 3.0 gm/dL A/G ratio (test code = A/G ratio) 1.5 >1.0 bilirubin,total (test code = 1.1 mg/dL 0.0-1.2 bilirubin,total) AST/SGOT (test code = AST/SGOT) 22 U/L 15-32 Alanine aminotransferase 22 U/L 0-33 [Enzymatic activity/volume] in Serum or Plasma (test code = 1742-6) Alkaline phosphatase [Enzymatic 72 U/L 35-105 activity/volume] in Serum or Plasma (test code = 6768-6) [facility] - Serum or [id number] 07:03:00 Test Item Value Reference Range Interpretation Comments cholesterol level (test code = 255 mg/dL 150-200 H cholesterol level) triglycerides level (test code = 152 mg/dL <150 H triglycerides level) HDL cholesterol (test code = HDL 66 mg/dL >65 cholesterol) LDL cholesterol direct (test code = 170 mg/dL <100 H LDL cholesterol direct) cholesterol risk ratio (test code = 3.863 cholesterol risk ratio) [facility] CenterThyrotropin [Units/volume] in Serum or [id number] 07:03:00 Test Item Value Reference Range Interpretation Comments Thyrotropin [Units/volume] in 0.84 uIU/mL 0.36-3.74 Serum or Plasma (test code = 3016-3) [facility]
[2022-05-22 09:07] VITALS: BP 140/94; TEMP 98.3; O2SAT 100
== END 2022-05-22 02:03 | disposition home or self-care (01) ==
LOC: ER 01:23
DX: A60.00 Herpesviral infection of urogenital system, unspecified (principal); D25.9 Leiomyoma of uterus, unspecified; R10.9 Unspecified abdominal pain; Z88.5 Allergy status to narcotic agent
CPT/HCPCS: 99283

== ENCOUNTER 2023-05-03 21:46 | Emergency (ER) | payer BC, SELFPAY ==
--- OUTSIDE RECORDS SUMMARY | 2023-05-03 21:50 | XMS REPORT | Continuity of Care Document ---
:1975 Author Organization [facility] t Address [address] [place] [address] Care Team Providers Name Role Phone CHENG RITTER Primary Care Physician Unavailable Desiree Villanueva Attending Clinician Unavailable SHAJI ALVAREZ Attending Clinician Unavailable Shaji Alvarez MD Attending Clinician TYE BARR Attending Clinician Unavailable Tye Barr MD Attending Clinician Aldo Attending Clinician Unavailable MILTON MEJIA Attending Clinician Unavailable Doctor Unassigned, [place] Attending Clinician Unavailable Katie MO Attending Clinician Unavailable Katie Gutierrez Attending Clinician NENO DHALIWAL Attending Clinician Unavailable Neno Sanches Attending Clinician [phone] MARIANA WYATT Attending Clinician Unavailable Mariana Gregory Attending Clinician MICHELLE KRUEGER Attending Clinician Unavailable Michelle Krueger DO Attending Clinician CHEKO BURRELL Attending Clinician Unavailable Cheko Burrell DO Attending Clinician DOMENICO HICKS Attending Clinician Unavailable Domenico Hicks MD Attending Clinician CARLIN JAMES Attending Clinician Unavailable Carlin Hall Attending Clinician Shalonda Barger Attending Clinician Itzel Attending Clinician Unavailable Radiology Attending Clinician Unavailable Desiree Villanueva Admitting Clinician Unavailable SHAJI ALVAREZ Admitting Clinician Unavailable TYE BARR Admitting Clinician Unavailable Aldo Admitting Clinician Unavailable Katie MO Admitting Clinician Unavailable MARIANA WYATT Admitting Clinician Unavailable CHEKO BURRELL Admitting Clinician Unavailable DOMENICO HICKS Admitting Clinician Unavailable CARLIN JAMES Admitting Clinician Unavailable Itzel Admitting Clinician Unavailable Payers Payer Name Policy Type Policy Number Effective Date Expiration Date Brittni botello [facility] [id number] 2020 00:00:00 [facility] - [id number] 2018 OUT OF STATE 00:00:00 [facility] - [id number] 2020 2022 EV BENEFITS 00:00:00 00:00:00 [place] [id number] 2018 2020 00:00:00 00:00:00 Problems Condition Condition [...] Univers pain pain 8-19 ity of 00:00: [place] 00 Medical Branch Obesity Obesity Disease Active Univers (BMI (BMI 8-19 ity of 30-39.9) 30-39.9) 00:00: Medical Branch History of History of Disease Active U nivers tubal tubal 8-19 ity of ligation ligation 00:00: [place] [facility] History of History of Disease Active U nivers depression depression 8-19 it y of 00:00: Medical Branch History of History of Disease Active U nivers uterine uterine 8-19 ity of fibroid fibroid 00:00: [place] [facility] Obesity Obesity Problem Active [place] [...] Hives Univer s ne Hcl ty to 7 ity of adverse 00:00: [place] reaction 00 Medical s Branch MEPERIDI DRUG Active Hives Univers NE HCL INGREDI 01-29 ity of 00:00: [place] 00 Medical Branch meperidi DA Active U 2013-0 [facility] [place] meperidi DA Active U RASH 2013-0 [facility]: [facility] [place] Cymbalta Allergy Active [place] to da substanc [...] Active Rash Univers NE INGREDI ity of [facility] [place] TOPIRAMA DRUG Active Rash Univers TE INGREDI ity of [facility] [place] Social History Social Habit Start Date Stop Date Quantity Comments Source Sexual orientation Univer sity of [facility] [place] Exposure to 2022-08-30 2022-09-09 Not [facility] SARS-CoV-2 (event) 00:00:00 16:23:00 [facility] [place] Alcohol intake 2022-09-09 2022-09-09 Current University of 00:00:00 00:00:00 non-drinker of [facility] alcohol Branch (finding) Tobacco use and 2022-03-01 2022-03-01 Smokeless Universit y of exposure 00:00:00 00:00:00 tobacco non-user [facility] [place] [facility] dical [place] History of Social 2022-03-01 2022-03-01 Univers ity of function 00:00:00 00:00:00 [facility] [place] Sex [birth year] At [birth year] Universit y of 00:00:00 00:00:00 [facility] [place] Smoking Status Start Date Stop Date Source Never smoked tobacco [facility] Medications Ordered Filled Start Stop Current Ordering Indication Dosage Frequency Signature Comments Components Source Medication Medication Date Date Medication? Clinician (SIG) Name Name HYDROcodone 2022-07 No 1{tbl} 1 tablet, Univers -acetaminop 0-03 10-03 Oral, ity of hen (NORCO) 01:30: 01:09 ONCE[place] 1 [place] 10-325 mg 00 :00 dose, On Medica l tablet 1 [facility] tablet 04/14/23 at 2030, ALISHA dexamethaso 2022-07 No 10mg 10 mg, Uni vers ne sod phos 0-03 10-03 Oral, ity of PF 00:30: 01:09 ONCE, 1 [place] injection 00 :00 dose, On Medica l 10 mg Mon Branch 04/14/23 at 1930, 1 mL methocarbam 2022-07 Yes [id number] 500mg Take 1 Univers oL 500 mg 0-02 tablet by ity o f tablet 00:00: mouth 4 [place] 00 (four) Medical times Branch daily as needed for Pain (scale 4-6). methylPREDN 2022-07 Yes [id number] Take by Univers ISolone 4 0-02 mouth ity of mg tablets 00:00: SEE-INSTRU [place] 00 CTIONS. Medical follow Branch package directions ondansetron 2022-07 Yes [id number] 4mg Take 1 Univers 4 mg 0-02 tablet by ity of disintegrat 00:00: mouth [place] ing tablet 00 every 12 Medic al (twelve) Branch hours as needed for Nausea and Vomiting (N/V). HYDROcodone 2022-07- Yes [id number] 1{tbl} Take 1 U nivers -acetaminop 0-02 10-10 tablet by it y of hen 5-325 00:00: 04:59 mouth [place] mg tablet 00 :00 every 6 Medical (six) Branch hours as needed for Pain (scale 7-10) for up to 7 days. Indication s: acute pain ketorolac 2022- No 30mg 30 mg, Unive rs (TORADOL) 01-04 Slow IV ity of injection 11:45: 11:03 Push, [place] 30 mg 00 :00 ONCE, 1 Medical dose, On Branch 01/04/23 at 0645, ALISHA FENTanyl PF No 75ug 75 mcg, Un norman (SUBLIMAZE 01-04 Slow IV ity o f (PF)) 11:45: 11:04 Push, [place] injection 00 :00 ONCE, 1 Medical 75 mcg dose, On Branch 01/04/23 at 0645, STAT NaCl 0.9% 2022- No 1000mL at 999 Uni vers (NS) IV 01-04 mL/hr, ity of infusion 11:00: 11:05 Intravenou [place] 1,000 mL 00 :00 s, ONCE, 1 Medic al dose, On Branch 01/04/23 at 0600, ALISHA methylpredn 2022- No 125mg 125 mg, U jaimeers isolone sod 01-04 Slow IV ity of succ 10:30: 09:35 Push, ONCE [place] (SOLU-MEDRO 00 :00 NOW, 1 Medica l L) dose, On Branch injection Sat 125 mg 01/04/23 at 0530, ALISHA ondansetron 2022- No 4mg 4 mg, Slow Univers (ZOFRAN 01-04 IV Push, ity of (PF)) 10:15: 10:02 ONCE, 1 [place] injection 4 00 :00 dose, On Medi agnieszka mg Sat Branch 01/04/23 at 0515, ALISHA morpHINE (4 2022- No 4mg 4 mg, Slow Univers mg/mL) 604 01- IV Push, ity of injection 4 09:30: 09:37 ONCE, 1 [place] mg 00 :00 dose, On Medical Sat Branch 01/04/23 at 0430, STAT predniSONE 2022-0 Yes [id number] 40mg Take 2 Univers 20 mg 6-24 tablets by ity of tablet 00:00: mouth [place] 00 every Medical morning. Branch ondansetron Yes [id number] 4mg Take 1 Univers 4 mg 6-24 tablet by ity of disintegrat 00:00: mouth [place] ing tablet 00 every 4 Medica l (four) Branch hours as needed for Nausea and Vomiting (N/V). predniSONE Yes [id number] 40mg Take 2 Univers 20 mg 6-24 tablets by ity of tablet 00:00: mouth [place] 00 every Medical morning. Branch ondansetron Yes [id number] 4mg Take 1 Univers 4 mg 6-24 tablet by ity of disintegrat 00:00: mouth [place] ing tablet 00 every 4 Medica l (four) Branch hours as needed for Nausea and Vomiting (N/V). HYDROcodone 2022- No [id number] 1{tbl} Take 1 U nivers -acetaminop 01-04 tablet by it y of hen (NORCO) 00:00: 04:59 [place] 7.5-325 mg 00 :00 every 8 Medica l per tablet (eight) Branch hours as needed for Pain for up to 7 days. Indication s: acute pain ketorolac 2022-2022- No 15mg 15 mg, Unive rs (TORADOL) 09-10 Slow IV ity of injection 00:45: 00:00 Push, [place] 15 mg 00 :00 ONCE, 1 Medical dose, On Branch 09/09/22 at 1845, Routine methocarbam 2022-2022- No 500mg 500 mg, U nivers oL 09-10 Oral, ONCE ity of (ROBAXIN) 00:45: 00:01 NOW, 1 [place] tablet 500 00 :00 dose, On Medic al mg Mon Branch 09/09/22 at 1845, Routine methocarbam 2022-0 Yes [id number] 500mg Take 1 Univers oL 500 mg 09-09 tablet by ity o f tablet 00:00: mouth 4 ([facility]) Medical times Branch daily. naproxen 2022-0 Yes [id number] 500mg Take 1 Un norman (NAPROSYN) 2-27 tablet by ity of 500 mg 00:00: mouth in [place] tablet 00 the Medical morning Branch and 1 tablet in the evening. Take with meals. methocarbam 3-0 Yes [id number] 500mg Take 1 Univers oL 500 mg 2-27 tablet by ity o f tablet 00:00: mouth 4 ([facility]) Medical times Branch daily. naproxen 2022-0 Yes [id number] 500mg Take 1 Un norman (NAPROSYN) 2-27 tablet by ity of 500 mg 00:00: mouth in [place] tablet 00 the Medical morning Branch and 1 tablet in the evening. Take with meals. methocarbam 2022-0 Yes [id number] 500mg Take 1 Univers oL 500 mg 2-27 tablet by ity o f tablet 00:00: mouth ([facility]) Medical times Branch daily. naproxen 2022-0 Yes [id number] 500mg Take 1 Un norman (NAPROSYN) 2-27 tablet by ity of 500 mg 00:00: mouth in [place] tablet 00 the Medical morning Branch and 1 tablet in the evening. Take with meals. methocarbam 2022-0 Yes [id number] 500mg Take 1 Univers oL 500 mg 2-27 tablet by ity o f tablet 00:00: mouth ([facility]) Medical times Branch daily. naproxen 2022-0 Yes [id number] 500mg Take 1 Un norman (NAPROSYN) 2-27 tablet by ity of 500 mg 00:00: mouth in [place] tablet 00 the Medical morning Branch and 1 tablet in the evening. Take with meals. naproxen 2021-07 Yes [id number] 500mg Take 1 U nivers 500 mg 1-10 tablet by ity of tablet 00:00: mouth 2 ([facility]) Medical times Branch daily with meals as needed for Pain (scale 4-6). naproxen 2021-07 Yes [id number] 500mg Take 1 U nivers 500 mg 1-10 tablet by ity of tablet 00:00: mouth 2 (two) Medical times Branch daily with meals as needed for Pain (scale 4-6). naproxen 2021-07- No [id number] 500mg Take 1 Univers 500 mg 07-23 tablet by ity of tablet 00:00: 00:00 mouth 2 [place] 00 :00 (two) Medical times Branch daily with meals as needed for Pain (scale 4-6). ampicillin 2021- No [id number] 500mg Take 1 Univers 500 mg 03-04 capsule by ity of capsule 00:00: 04:59 mouth 4 [place] 00 :00 (four) Medical times Branch daily for 10 days. ampicillin 2021- No [id number] 500mg Take 1 Univers 500 mg 03-04 capsule by ity of capsule 00:00: 04:59 mouth 4 [place] 00 :00 (four) Medical times Branch daily for 10 days. ampicillin 2021- No [id number] 500mg Take 1 Univers 500 mg 03-04 capsule by ity of capsule 00:00: 04:59 mouth 4 [place] 00 :00 (four) Medical times Branch daily for 10 days. ampicillin 2021- No [id number] 500mg Take 1 Univers 500 mg 03-04 capsule by ity of capsule 00:00: 04:59 mouth 4 [place] 00 :00 (four) Medical times Branch daily for 10 days. ampicillin 2021- No [id number] 500mg Take 1 Univers 500 mg 03-04 capsule by ity of capsule 00:00: 04:59 mouth 4 [place] 00 :00 (four) Medical times Branch daily for 10 days. ampicillin 2021- No [id number] 500mg Take 1 Univers 500 mg 03-04 capsule by ity of capsule 00:00: 04:59 mouth 4 [place] 00 :00 (four) Medical times Branch daily for 10 days. ampicillin 2021- No [id number] 500mg Take 1 Univers 500 mg 03-04 capsule by ity of capsule 00:00: 04:59 mouth 4 [place] 00 :00 (four) Medical times Branch daily for 10 days. dicyclomine Yes [id number] 20mg Take 1 Univers 20 mg 5-25 tablet by ity of tablet 00:00: mouth 4 [place] 00 (four) Medical times Branch daily as needed for Abdominal pain. metoclopram Yes [id number] 10mg Take 1 Univers leslie HCl 10 5-25 tablet by ity of mg tablet 00:00: mouth [place] 00 every 6 Medical (six) Branch hours as needed for Nausea and Vomiting (N/V). dicyclomine 2022-0 Yes [id number] 20mg Take 1 Univers 20 mg 5-25 tablet by ity of tablet 00:00: mouth 4 [place] 00 (four) Medical times Branch daily as needed for Abdominal pain. metoclopram 2022-0 Yes [id number] 10mg Take 1 Univers leslie HCl 10 5-25 tablet by ity of mg tablet 00:00: mouth [place] 00 every 6 Medical (six) Branch hours as needed for Nausea and Vomiting (N/V). dicyclomine 2022-0 Yes [id number] 20mg Take 1 Univers 20 mg 5-25 tablet by ity of tablet 00:00: mouth 4 00 (four) Medical times Branch daily as needed for Abdominal pain. metoclopram 2022-0 Yes [id number] 10mg Take 1 Univers leslie HCl 10 5-25 tablet by ity of mg tablet 00:00: mouth [place] 00 every 6 Medical (six) Branch hours as needed for Nausea and Vomiting (N/V). dicyclomine 2022-0 Yes [id number] 20mg Take 1 Univers 20 mg 5-25 tablet by ity of tablet 00:00: mouth 4 00 (four) Medical times Branch daily as needed for Abdominal pain. metoclopram 2022-0 Yes [id number] 10mg Take 1 Univers leslie HCl 10 5-25 tablet by ity of mg tablet 00:00: mouth [place] 00 every 6 Medical (six) Branch hours as needed for Nausea and Vomiting (N/V). dicyclomine 2022-0 Yes [id number] 20mg Take 1 Univers 20 mg 5-25 tablet by ity of tablet 00:00: mouth 4 [place] 00 (four) Medical times Branch daily as needed for Abdominal pain. metoclopram 2022-0 Yes [id number] 10mg Take 1 Univers leslie HCl 10 5-25 tablet by ity of mg tablet 00:00: mouth [place] 00 every 6 Medical (six) Branch hours as needed for Nausea and Vomiting (N/V). dicyclomine 2022-0 Yes [id number] 20mg Take 1 Univers 20 mg 5-25 tablet by ity of tablet 00:00: mouth 4 (four) Medical times Branch daily as needed for Abdominal pain. metoclopram 2022-0 Yes [id number] 10mg Take 1 Univers leslie HCl 10 5-25 tablet by ity of mg tablet 00:00: mouth [place] 00 every 6 Medical (six) Branch hours as needed for Nausea and Vomiting (N/V). dicyclomine 2022-0 Yes [id number] 20mg Take 1 Univers 20 mg 5-25 tablet by ity of tablet 00:00: mouth (four) Medical times Branch daily as needed for Abdominal pain. metoclopram 2022-0 Yes [id number] 10mg Take 1 Univers leslie HCl 10 5-25 tablet by ity of mg tablet 00:00: mouth [place] 00 every 6 Medical (six) Branch hours as needed for Nausea and Vomiting (N/V). dicyclomine 2022-0 Yes [id number] 20mg Take 1 Univers 20 mg 5-25 tablet by ity of tablet 00:00: mouth (four) Medical times Branch daily as needed for Abdominal pain. metoclopram 2022-0 Yes [id number] 10mg Take 1 Univers leslie HCl 10 5-25 tablet by ity of mg tablet 00:00: mouth [place] 00 every 6 Medical (six) Branch hours as needed for Nausea and Vomiting (N/V). dicyclomine 2022-0 Yes [id number] 20mg Take 1 Univers 20 mg 5-25 tablet by ity of tablet 00:00: mouth (four) Medical times Branch daily as needed for Abdominal pain. metoclopram 2022-0 Yes [id number] 10mg Take 1 Univers leslie HCl 10 5-25 tablet by ity of mg tablet 00:00: mouth [place] 00 every 6 Medical (six) Branch hours as needed for Nausea and Vomiting (N/V). dicyclomine 2022-0 Yes [id number] 20mg Take 1 Univers 20 mg 5-25 tablet by ity of tablet 00:00: mouth 4 (four) Medical times Branch daily as needed for Abdominal pain. metoclopram 2022-0 Yes [id number] 10mg Take 1 Univers leslie HCl 10 5-25 tablet by ity of mg tablet 00:00: mouth [place] 00 every 6 Medical (six) Branch hours as needed for Nausea and Vomiting (N/V). dicyclomine 2022-0 Yes [id number] 20mg Take 1 Univers 20 mg 5-25 tablet by ity of tablet 00:00: mouth 4 (four) Medical times Branch daily as needed for Abdominal pain. metoclopram 2022-0 Yes [id number] 10mg Take 1 Univers leslie HCl 10 5-25 tablet by ity of mg tablet 00:00: mouth [place] 00 every 6 Medical (six) Branch hours as needed for Nausea and Vomiting (N/V). dicyclomine 2022-0 Yes [id number] 20mg Take 1 Univers 20 mg 5-25 tablet by ity of tablet 00:00: mouth (four) Medical times Branch daily as needed for Abdominal pain. metoclopram 2022-0 Yes [id number] 10mg Take 1 Univers leslie HCl 10 5-25 tablet by ity of mg tablet 00:00: mouth [place] 00 every 6 Medical (six) Branch hours as needed for Nausea and Vomiting (N/V). dicyclomine 2022-0 Yes [id number] 20mg Take 1 Univers 20 mg 5-25 tablet by ity of tablet 00:00: mouth (four) Medical times Branch daily as needed for Abdominal pain. metoclopram 2022-0 Yes [id number] 10mg Take 1 Univers leslie HCl 10 5-25 tablet by ity of mg tablet 00:00: mouth [place] 00 every 6 Medical (six) Branch hours as needed for Nausea and Vomiting (N/V). dicyclomine 2022-0 Yes [id number] 20mg Take 1 Univers 20 mg 5-25 tablet by ity of tablet 00:00: mouth (four) Medical times Branch daily as needed for Abdominal pain. metoclopram 2022-0 Yes [id number] 10mg Take 1 Univers leslie HCl 10 5-25 tablet by ity of mg tablet 00:00: mouth [place] 00 every 6 Medical (six) Branch hours as needed for Nausea and Vomiting (N/V). dicyclomine 2022-0 Yes [id number] 20mg Take 1 Univers 20 mg 5-25 tablet by ity of tablet 00:00: mouth (four) Medical times Branch daily as needed for Abdominal pain. metoclopram 2022-0 Yes [id number] 10mg Take 1 Univers leslie HCl 10 5-25 tablet by ity of mg tablet 00:00: mouth [place] 00 every 6 Medical (six) Branch hours as needed for Nausea and Vomiting (N/V). ondansetron 2021-0 Yes [id number] 4mg Take 1 Univers 4 mg 5-18 tablet by ity of disintegrat 00:00: mouth [place] ing tablet 00 every 8 Medica l (eight) Branch hours as needed for Nausea and Vomiting (N/V). ondansetron 2021-0 Yes [id number] 4mg Take 1 Univers 4 mg 5-18 tablet by ity of disintegrat 00:00: mouth [place] ing tablet 00 every 8 Medica l (eight) Branch hours as needed for Nausea and Vomiting (N/V). ondansetron 2021-0 Yes [id number] 4mg Take 1 Univers 4 mg 5-18 tablet by ity of disintegrat 00:00: mouth [place] ing tablet 00 every 8 Medica l (eight) Branch hours as needed for Nausea and Vomiting (N/V). ondansetron 2021-0 Yes [id number] 4mg Take 1 Univers 4 mg 5-18 tablet by ity of disintegrat 00:00: mouth [place] ing tablet 00 every 8 Medica l (eight) Branch hours as needed for Nausea and Vomiting (N/V). ondansetron 2021-0 Yes [id number] 4mg Take 1 Univers 4 mg 5-18 tablet by ity of disintegrat 00:00: mouth [place] ing tablet 00 every 8 Medica l (eight) Branch hours as needed for Nausea and Vomiting (N/V). ondansetron 2-0 Yes [id number] 4mg Take 1 Univers 4 mg 5-18 tablet by ity of disintegrat 00:00: mouth [place] ing tablet 00 every 8 Medica l (eight) Branch hours as needed for Nausea and Vomiting (N/V). ondansetron 2-0 Yes [id number] 4mg Take 1 Univers 4 mg 5-18 tablet by ity of disintegrat 00:00: mouth [place] ing tablet 00 every 8 Medica l (eight) Branch hours as needed for Nausea and Vomiting (N/V). ondansetron 2-0 Yes [id number] 4mg Take 1 Univers 4 mg 5-18 tablet by ity of disintegrat 00:00: mouth [place] ing tablet 00 every 8 Medica l (eight) Branch hours as needed for Nausea and Vomiting (N/V). ondansetron 2021-0 Yes [id number] 4mg Take 1 Univers 4 mg 5-18 tablet by ity of disintegrat 00:00: mouth [place] ing tablet 00 every 8 Medica l (eight) Branch hours as needed for Nausea and Vomiting (N/V). ondansetron 2021-0 Yes [id number] 4mg Take 1 Univers 4 mg 5-18 tablet by ity of disintegrat 00:00: mouth [place] ing tablet 00 every 8 Medica l (eight) Branch hours as needed for Nausea and Vomiting (N/V). ondansetron 0 Yes [id number] 4mg Take 1 Univers 4 mg 5-18 tablet by ity of disintegrat 00:00: mouth [place] ing tablet 00 every 8 Medica l (eight) Branch hours as needed for Nausea and Vomiting (N/V). ondansetron 0 3- No [id number] 4mg Take 1 Univers 4 mg 5-18 06-24 tablet by ity of disintegrat 00:00: 00:00 [place] tablet 00 :00 every 8 Medica l (eight) Branch hours [...] TABLET BY DAY DAY MOUTH EVERY DAY phentermine phentermine No phentermin [place] 37.5 mg 37.5 mg e 37.5 mg da tablet TAKE tablet TAKE tablet Medical 1 TABLET BY 1 TABLET BY TAKE 1 Group MOUTH EVERY MOUTH EVERY TABLET BY DAY DAY MOUTH EVERY DAY phentermine phentermine No phentermin [place] 37.5 mg 37.5 mg e 37.5 mg da tablet TAKE tablet TAKE tablet Medical 1 TABLET BY 1 TABLET BY TAKE 1 Group MOUTH EVERY MOUTH EVERY TABLET BY DAY DAY MOUTH EVERY DAY temazepam temazepam No 1capsul Q1D temazepam [place] 15 mg 15 mg e(s) 15 mg da capsule capsule capsule Medica l Take 1 Take 1 Take 1 Group capsule capsule capsule every day every day every day by oral by oral by oral route at route at route at bedtime for bedtime for bedtime 30 days. 30 days. for 30 days. Vital Signs Vital Name Observation Time Observation Value Comments Source Systolic blood 2023-04-15 02:06:00 148 mm[Hg] [facility] Diastolic blood 2023-04-15 02:06:00 95 mm[Hg] [facility] Heart rate 2023-04-15 02:06:00 67 /min [facility] Body temperature 2023-04-15 02:06:00 36.44 Kathryn [facility] Respiratory rate 2023-04-15 02:06:00 16 /min [facility] Oxygen saturation in 2023-04-15 02:06:00 98 /min [facility] Arterial blood by [facility] Pulse oximetry Branch Body height 2023-04-14 23:31:00 170.2 cm [facility] Body weight 2023-04-14 23:31:00 104.327 kg [facility] BMI 2023-04-14 23:31:00 36.02 kg/m2 Universi ty [facility] Systolic blood 2023-01-04 11:04:00 148 mm[Hg] Univer sity of pressure [facility] Branch Diastolic blood 2023-01-04 11:04:00 95 mm[Hg] Unive rsity of [facility] Heart rate 2023-01-04 11:04:00 58 /min Universi ty [facility] Respiratory rate 2023-01-04 11:04:00 17 /min Univ ersity of [facility] [place] Oxygen saturation in 2023-01-04 11:04:00 96 /min University of Arterial blood by [employer] agnieszka Pulse oximetry Branch Body temperature 2023-01-04 08:21:00 36.61 Kathryn Univ [facility] Body height 2023-01-04 08:21:00 170.2 cm [facility] Body weight 2023-01-04 08:21:00 109.135 kg [facility] BMI 2023-01-04 08:21:00 37.68 kg/m2 [facility] BP Diastolic 2022-11-14 00:00:00 94 mm[Hg] [facility] Height 2022-11-14 00:00:00 67 [in_i] [facility] BMI (Body Mass 2022-11-14 00:00:00 37.6 kg/m2 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) Group BP Systolic 2022-11-14 00:00:00 145 mm[Hg] [facility] Body Weight 2022-11-14 00:00:00 3840 [oz_av] [facility] Systolic blood 2022-09-10 01:00:00 143 mm[Hg] Univer sity of [facility] Diastolic blood 2022-09-10 01:00:00 85 mm[Hg] Unive rsity of [facility] Heart rate 2022-09-10 01:00:00 62 /min Universi ty [facility] Respiratory rate 2022-09-10 01:00:00 15 /min [facility] 2022-09-10 01:00:00 99 /min University of Arterial blood by [place] Medi agnieszka Pulse oximetry Branch Body temperature 2022-09-09 22:24:00 36.61 Kathryn Univ ersity of [place] [facility] Body weight 2022-09-09 22:24:00 108.863 kg Universi ty of [place] [facility] BMI 2022-09-09 22:24:00 37.59 kg/m2 Universi ty of [place] [facility] Systolic blood 2022-06-04 08:00:00 125 mm[Hg] Univer sity of pressure [place] [facility] Diastolic blood 2022-06-04 08:00:00 86 mm[Hg] Unive rsity of pressure [place] [facility] Heart rate 2022-06-04 08:00:00 81 /min Universi ty of [place] [facility] Respiratory rate 2022-06-04 08:00:00 14 /min Univ ersity of [place] [facility] Oxygen saturation in 2022-06-04 08:00:00 96 /min University of Arterial blood by [facility] Pulse oximetry Branch Body temperature 2022-06-04 05:49:00 35 Kathryn Univ ersity of [place] [facility] Body height 2022-06-04 05:49:00 170.2 cm Universi ty [facility] [place] [facility] Body weight 2022-06-04 05:49:00 109.226 kg Universi ty [facility] [place] [facility] BMI 2022-06-04 05:49:00 37.71 kg/m2 [facility] [place] [facility] Systolic blood 2022-05-23 13:12:00 171 mm[Hg] Univer sity of pressure [place] [facility] Diastolic blood 2022-05-23 13:12:00 99 mm[Hg] Unive rsity of pressure [place] [facility] Heart rate 2022-05-23 13:12:00 89 /min Universi ty [facility] [place] [facility] Body temperature 2022-05-23 13:12:00 36.83 Kathryn Univ ersity of [place] [facility] Respiratory rate 2022-05-23 13:12:00 18 /min [facility] Body height 2022-05-23 13:12:00 170.2 cm [facility] Body weight 2022-05-23 13:12:00 97.523 kg [facility] BMI 2022-05-23 13:12:00 33.67 kg/m2 [facility] Oxygen saturation in 2022-05-23 13:12:00 99 /min [facility] Arterial blood by [facility] Pulse oximetry Branch BP Diastolic 2021-07-12 00:00:00 89 mm[Hg] [facility] Height 2021-07-12 00:00:00 66.5 [in_i] [facility] BMI (Body Mass 2021-07-12 00:00:00 33.9 kg/m2 [facility] 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) Group BP Systolic 2021-07-12 00:00:00 131 mm[Hg] [facility] Body Weight 2021-07-12 00:00:00 3408 [oz_av] [facility] BP Diastolic 2021-06-12 00:00:00 86 mm[Hg] [facility] Height 2021-06-12 00:00:00 66.5 [in_i] [facility] BMI (Body Mass 2021-06-12 00:00:00 33.9 kg/m2 [facility] 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) Group BP Systolic 2021-06-12 00:00:00 140 mm[Hg] [facility] Body Weight 2021-06-12 00:00:00 3415 [oz_av] [facility] BP Diastolic 2021-04-26 00:00:00 88 mm[Hg] [facility] Height 2021-04-26 00:00:00 66.5 [in_i] [facility] BMI (Body Mass 2021-04-26 00:00:00 33.5 kg/m2 [facility] 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) Group BP Systolic 2021-04-26 00:00:00 128 mm[Hg] [facility] Body Weight 2021-04-26 00:00:00 3376 [oz_av] [facility] BP Diastolic 2021-03-29 00:00:00 81 mm[Hg] [facility] Height 2021-03-29 00:00:00 66.5 [in_i] [facility] BMI (Body Mass 2021-03-29 00:00:00 33.6 kg/m2 [facility] 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) Group BP Systolic 2021-03-29 00:00:00 143 mm[Hg] [facility] Body Weight 2021-03-29 00:00:00 3380 [oz_av] [facility] BP Diastolic 2021-02-19 00:00:00 96 mm[Hg] [facility] Height 2021-02-19 00:00:00 66.5 [in_i] [facility] BMI (Body Mass 2021-02-19 00:00:00 32 kg/m2 [facility] Medical Index) Group BP Systolic 2021-02-19 00:00:00 138 mm[Hg] [facility] Body Weight 2021-02-19 00:00:00 3216 [oz_av] [facility] BP Diastolic 2021-01-18 00:00:00 87 mm[Hg] [facility] Height 2021-01-18 00:00:00 66.5 [in_i] [facility] BMI (Body Mass 2021-01-18 00:00:00 32 kg/m2 [facility] Medical Index) Group BP Systolic 2021-01-18 00:00:00 123 mm[Hg] [facility] Body Weight 2021-01-18 00:00:00 3219 [oz_av] [facility] BP Diastolic 2020-12-21 00:00:00 82 mm[Hg] [facility] Height 2020-12-21 00:00:00 66.5 [in_i] [facility] BMI (Body Mass 2020-12-21 00:00:00 31.3 kg/m2 [facility] Medical Index) Group BP Systolic 2020-12-21 00:00:00 124 mm[Hg] [facility] Body Weight 2020-12-21 00:00:00 3152 [oz_av] [facility] BP Diastolic 2020-11-23 00:00:00 96 mm[Hg] [facility] Height 2020-11-23 00:00:00 66.5 [in_i] [facility] BMI (Body Mass 2020-11-23 00:00:00 30.8 kg/m2 [facility] Medical Index) Group BP Systolic 2020-11-23 00:00:00 134 mm[Hg] [facility] Body Weight 2020-11-23 00:00:00 3104 [oz_av] [facility] BP Diastolic 2020-10-19 00:00:00 85 mm[Hg] [facility] Height 2020-10-19 00:00:00 66.5 [in_i] [facility] BMI (Body Mass 2020-10-19 00:00:00 31.2 kg/m2 [facility] Medical Index) Group BP Systolic 2020-10-19 00:00:00 130 mm[Hg] [facility] Body Weight 2020-10-19 00:00:00 3136 [oz_av] [facility] BP Diastolic 2020-09-21 00:00:00 91 mm[Hg] [facility] Height 2020-09-21 00:00:00 66.5 [in_i] [facility] BMI (Body Mass 2020-09-21 00:00:00 31.3 kg/m2 [facility] Medical Index) Group BP Systolic 2020-09-21 00:00:00 132 mm[Hg] [facility] Body Weight 2020-09-21 00:00:00 3154 [oz_av] [facility] BP Diastolic 2020-08-24 00:00:00 89 mm[Hg] [facility] Height 2020-08-24 00:00:00 66.5 [in_i] [facility] BMI (Body Mass 2020-08-24 00:00:00 31.2 kg/m2 [facility] Medical Index) Group BP Systolic 2020-08-24 00:00:00 129 mm[Hg] [facility] Body Weight 2020-08-24 00:00:00 3141 [oz_av] [facility] BP Diastolic 2020-07-25 00:00:00 94 mm[Hg] [facility] Height 2020-07-25 00:00:00 66.5 [in_i] [facility] BMI (Body Mass 2020-07-25 00:00:00 31.8 kg/m2 [facility] 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) Group BP Systolic 2020-07-25 00:00:00 138 mm[Hg] [facility] Body Weight 2020-07-25 00:00:00 3200 [oz_av] [facility] BP Diastolic 2020-06-22 00:00:00 93 mm[Hg] [facility] Height 2020-06-22 00:00:00 66.5 [in_i] [facility] BMI (Body Mass 2020-06-22 00:00:00 32.1 kg/[facility]2 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 BP Systolic 2020-06-22 00:00:00 132 mm[Hg] [facility] Body Weight 2020-06-22 00:00:00 3233 [oz_av] [facility] BP Diastolic 2020-05-25 00:00:00 97 mm[Hg] [facility] Height 2020-05-25 00:00:00 66.5 [in_i] [facility] BMI (Body Mass 2020-05-25 00:00:00 32.8 kg/m2 [facility] 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) Group BP Systolic 2020-05-25 00:00:00 134 mm[Hg] [facility] Body Weight 2020-05-25 00:00:00 3304 [oz_av] [facility] BP Diastolic 2020-04-26 00:00:00 88 mm[Hg] [facility] Height 2020-04-26 00:00:00 66.5 [in_i] [facility] BMI (Body Mass 2020-04-26 00:00:00 34 kg/m2 [facility] 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) Group BP Systolic 2020-04-26 00:00:00 133 mm[Hg] [facility] Body Weight 2020-04-26 00:00:00 3426 [oz_av] [facility] BP Diastolic 2020-03-28 00:00:00 88 mm[Hg] [facility] Height 2020-03-28 00:00:00 66.5 [in_i] [facility] BMI (Body Mass 2020-03-28 00:00:00 35.3 kg/m2 [facility] Medical Index) Group BP Systolic 2020-03-28 00:00:00 139 mm[Hg] [facility] Body Weight 2020-03-28 00:00:00 3553 [oz_av] [facility] BP Diastolic 2019-09-02 00:00:00 90 mm[Hg] [facility] Height 2019-09-02 00:00:00 66.5 [in_i] [facility] BMI (Body Mass 2019-09-02 00:00:00 34.7 kg/m2 [facility] Medical Index) Group BP Systolic 2019-09-02 00:00:00 135 mm[Hg] [facility] Body Weight 2019-09-02 00:00:00 3489 [oz_av] [facility] BP Diastolic 2019-07-01 00:00:00 86 mm[Hg] [facility] Height 2019-07-01 00:00:00 66.5 [in_i] [facility] BMI (Body Mass 2019-07-01 00:00:00 34.2 kg/m2 [facility] Medical Index) Group BP Systolic 2019-07-01 00:00:00 133 mm[Hg] [facility] Body Weight 2019-07-01 00:00:00 3440 [oz_av] [facility] BP Diastolic 2019-06-03 00:00:00 89 mm[Hg] [facility] Height 2019-06-03 00:00:00 66.5 [in_i] [facility] BMI (Body Mass 2019-06-03 00:00:00 34.1 kg/m2 [facility] Medical Index) Group BP Systolic 2019-06-03 00:00:00 132 mm[Hg] [facility] Body Weight 2019-06-03 00:00:00 3431 [oz_av] [facility] BP Diastolic 2019-05-05 00:00:00 86 mm[Hg] [facility] Height 2019-05-05 00:00:00 66.5 [in_i] [facility] BMI (Body Mass 2019-05-05 00:00:00 34.2 kg/m2 [facility] 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) Group BP Systolic 2019-05-05 00:00:00 133 mm[Hg] [facility] Body Weight 2019-05-05 00:00:00 3440 [oz_av] [facility] BP Diastolic 2019-04-01 00:00:00 91 mm[Hg] [facility] Height 2019-04-01 00:00:00 66.5 [in_i] [facility] BMI (Body Mass 2019-04-01 00:00:00 33.7 kg/m2 [facility] Medical Index) Group BP Systolic 2019-04-01 00:00:00 134 mm[Hg] [facility] Body Weight 2019-04-01 00:00:00 3392 [oz_av] [facility] BP Diastolic 2019-03-04 00:00:00 87 mm[Hg] [facility] Height 2019-03-04 00:00:00 66.5 [in_i] [facility] BMI (Body Mass 2019-03-04 00:00:00 34.2 kg/m2 [facility] BP Systolic 2019-03-04 00:00:00 126 mm[Hg] [facility] Body Weight 2019-03-04 00:00:00 3440 [oz_av] [facility] BP Diastolic 2018-12-31 00:00:00 84 mm[Hg] [facility] Height 2018-12-31 00:00:00 66.5 [in_i] [facility] BMI (Body Mass 2018-12-31 00:00:00 32.8 kg/m2 [facility] BP Systolic 2018-12-31 00:00:00 120 mm[Hg] [facility] Body Weight 2018-12-31 00:00:00 3296 [oz_av] [facility] BP Diastolic 2018-11-26 00:00:00 92 mm[Hg] [facility] Height 2018-11-26 00:00:00 66.5 [in_i] [facility] BMI (Body Mass 2018-11-26 00:00:00 32.6 kg/m2 [facility] Medical Index) Group BP Systolic 2018-11-26 00:00:00 136 mm[Hg] [facility] Body Weight 2018-11-26 00:00:00 3280 [oz_av] [facility] BP Diastolic 2018-11-04 00:00:00 92 mm[Hg] [facility] Height 2018-11-04 00:00:00 66.5 [in_i] [facility] BMI (Body Mass 2018-11-04 00:00:00 32.9 kg/m2 [facility] Medical Index) Group BP Systolic 2018-11-04 00:00:00 132 mm[Hg] [facility] Body Weight 2018-11-04 00:00:00 3312 [oz_av] [facility] BP Diastolic 2018-10-29 00:00:00 83 mm[Hg] [facility] Height 2018-10-29 00:00:00 66.5 [in_i] [facility] BMI (Body Mass 2018-10-29 00:00:00 32.9 kg/m2 [facility] Medical Index) Group BP Systolic 2018-10-29 00:00:00 128 mm[Hg] [facility] Body Weight 2018-10-29 00:00:00 3315 [oz_av] [facility] BP Diastolic 2018-09-24 00:00:00 106 mm[Hg] [facility] Height 2018-09-24 00:00:00 66.5 [in_i] [facility] BMI (Body Mass 2018-09-24 00:00:00 31.5 kg/m2 [facility] Medical Index) Group BP Systolic 2018-09-24 00:00:00 141 mm[Hg] [facility] Body Weight 2018-09-24 00:00:00 3169 [oz_av] [facility] BP Diastolic 2018-08-25 00:00:00 91 mm[Hg] [facility] Height 2018-08-25 00:00:00 66.5 [in_i] [facility] BMI (Body Mass 2018-08-25 00:00:00 31.8 kg/m2 [facility] Medical Index) Group BP Systolic 2018-08-25 00:00:00 136 mm[Hg] [facility] Body Weight 2018-08-25 00:00:00 3201 [oz_av] [facility] BP Diastolic 2018-07-23 00:00:00 89 mm[Hg] [facility] Height 2018-07-23 00:00:00 66.5 [in_i] [facility] BMI (Body Mass 2018-07-23 00:00:00 31.7 kg/m2 [facility] Medical Index) Group BP Systolic 2018-07-23 00:00:00 123 mm[Hg] [facility] Body Weight 2018-07-23 00:00:00 3191 [oz_av] [facility] Procedures Procedure Date / Time Performing Source Performed Clinician CONSENT/REFUSAL FOR DIAGNOSIS AND 2023-04-14 [facility] 23:19:54 Unassigned, No [facility] CT CERVICAL SPINE WO CONTRAST 2023-01-04 Tye Barr Un iversity of 09:26:40 [facility] NOTICE OF PRIVACY PRACTICES 2023-01-04 [facility] ersity of 08:09:40 Unassigned, No [facility] CONSENT/REFUSAL FOR DIAGNOSIS AND 2023-01-04 [facility] 08:09:21 Unassigned, No [facility] EKG-12 LEAD 2022-09-[address] [facility] 01:21:03 [facility] MAGNESIUM 2022-09-[address] [facility] 23:51:00 [facility] TROPONIN I 2022-09-[address] [facility] 23:51:00 [facility] COMP. METABOLIC PANEL (96785) 2022-09-09 Katie Mo Un iversity of 23:51:00 [facility] CBC WITH DIFF 2022-09-[address] [facility] 23:51:00 [facility] URINALYSIS 2022-09-[address] [facility] 23:51:00 [facility] N-TERMINAL PRO-BNP 2022-09-[address] [facility] 23:51:00 [facility] XR CHEST 1 VW 2022-09-09 Katie Mo [place] of 23:27:00 [facility] CONSENT/REFUSAL FOR DIAGNOSIS AND 2022-09-09 Doctor [facility] 21:51:54 Unassigned, No [facility] TROPONIN I 2022-06-04 Katie Mo [place] of 07:25:00 [facility] XR CHEST 1 VW 2022-06-04 Katie Mo [place] of 06:28:45 [facility] MAGNESIUM 2022-06-04 Katie Mo [place] of 06:08:00 [facility] TROPONIN I 2022-06-04 ReidKatie [facility] of 06:08:00 [facility] COMP. METABOLIC PANEL (67098) 2022-06-04 Katie Mo Un iversity of 06:08:00 [facility] CBC WITH DIFF 2022-06-04 Katie Mo [place] [facility] 06:08:00 [facility] D-DIMER 2022-06-04 Katie Mo [place] [facility] 06:08:00 [facility] URINALYSIS 2022-06-04 Katie Mo [place] of 06:08:00 [facility] N-TERMINAL PRO-BNP 2022-06-04 ReidKatie [facility] of 06:08:00 [facility] NOTICE OF PRIVACY PRACTICES 2022-06-04 [facility] ersity of 05:42:01 Unassigned, No [facility] CONSENT/REFUSAL FOR DIAGNOSIS AND 2022-06-04 [facility] 05:41:07 Unassigned, No [facility] US PELVIS COMPLETE WITH 2022-05-23 Shaji Alvarez [facility] of TRANSVAGINAL 15:10:04 [facility] TEST, SERUM 2022-05-23 Shaji Alvarez [place] of 13:34:00 [facility] COMP. METABOLIC PANEL ([id number]) 2022-05-23 Shaji Alvarez Un iversity of 13:34:00 [facility] CBC WITH DIFF 2022-05-23 Shaji Alvarez [place] of 13:34:00 [facility] CONSENT/REFUSAL FOR DIAGNOSIS AND 2022-05-23 Doctor [facility] 12:54:32 Unassigned, No [facility] BCCS-RELATED DOCUMENTATION 2022-03-13 Doctor Antonietta rsity of 05:01:00 Unassigned, No [facility] MRI, cervical spine, w/o contrast 2020-11-23 [facility] 00:00:00 Group MAMMO, screening, digital, 2020-03-28 [facility] bilateral 00:00:00 Group Esophagogastroduodenoscopy 2019-02-06 [facility] 00:00:00 Group Colonoscopy 2019-01-29 [facility] 00:00:00 Group Ankle Arthroscopy/surgery 2018-01-29 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 Medical 00:00:00 Group Colonoscopy 2014-07-14 [facility] 00:00:00 Group Back Surgery 1998-07-14 [facility] 00:00:00 Group Breast Procedure [facility] Encounters Start End Encounter Admission Attending Care Care Encounter Source Date/Time Date/Time Type Type Clinicians Facility Department ID 2021-05-15 Emergency [facility] [id number] Univers 03:20:56 ity [facility] 2021-05-13 Emergency [facility] [id number] Univers 18:17:35 ity [facility] 2021-05-13 Emergency [facility] [id number] [facility] 2020-10-11 Inpatient Desiree Villanueva [facility] [id number] [facility] 11:56:01 54 [facility] 2023-04-14 2023-04-14 Emergency X REX, [facility] ERT [id number] Univers 18:33:00 21:10:00 SHAJI ity [facility] 2023-04-14 2023-04-14 Emergency Vasaz, [facility] [id number] Univers 18:33:00 21:10:00 Shaji DE [place] [id number] i Sammi [id number] [facility] [id number] [facility] 084 Branch 2023-01-04 2023-01-04 Emergency [facility] E[facility] [id number] Univers 03:25:00 06:54:00 TYE nievesy [facility] 2023-01-04 2023-01-04 Emergency Barr, [facility] [id number] Univers 03:25:00 06:54:00 Tye DE LA TORRE [id number] i ty [facility] [id number] [facility] [id number] [facility] 084 Branch 2022-11-19 2022-11-19 [facility]patient [facility] [id number] [facility] 00:00:00 00:00:00 509 [facility] 2022-11-14 2022-11-14 Outpatient [facility] [id number] [facility] 00:00:00 00:00:00 504 [facility] 2022-11-14 2022-11-14 Cheng [facility] [place] - [id number] [facility] 00:00:00 00:00:00 Jcarlos Rodriguez Medical MD: [address] [place] [address], Family [address], [place] [address] , Ph. 2022-09-10 2022-09-10 Patient Doctor DESIREE [id number] Univers 00:00:00 00:00:00 Secure Msg Unassigned, ALEJANDRO [id number] ity of [place] [facility] [id number] [place] [address] [id number] [facility] 019 Branch 2022-09-09 2022-09-09 Emergency X Katie MO [facility] ERT [id number] Univers 16:25:00 19:39:00 ity of [facility] 2022-09-09 2022-09-09 Emergency Katie oM [facility] [id number] Univers 16:25:00 19:39:00 Chandni DE LA TOR[place] [id number] i ty of [facility] [id number] [facility] [id number] [facility] 084 Branch 2022-06-03 2022-06-04 Emergency X Katie MO [facility] ERT [id number] Univers 23:43:00 02:37:00 ity of [facility] 2022-06-03 2022-06-04 Emergency Reid, Katie [facility] [id number] Univers 23:43:00 02:37:00 Chandni DE LA TORRE [id number] i ty of [place] [id number] [facility] [id number] [address] 2022-06-04 2022-06-04 Patient Doctor DESIREE [id number] Univers 00:00:00 00:00:00 Secure Msg Unassigned, ALEJANDRO [id number] ity of [place] [facility] [id number] Aditya as [id number] [address] 2022-05-23 2022-05-23 Emergency X VASUT, [facility] ERT [id number] Univers 07:13:00 10:18:00 SHAJI ity [facility] 2022-05-23 2022-05-23 [facility] [id number] Univers 07:13:00 10:18:00 Shaji DE LA TORRE 350.1.13.10 i ty of [place] [id number] [facility] [id number] [address] 2022-04-02 2022-04-02 Outpatient R ANILA, [facility] [id number] Univers 00:00:00 00:00:00 NENO ruby [facility] 2022-04-02 2022-04-02 Outpatient R ANILA, [facility] [id number] Univers 00:00:00 00:00:00 NENO iglesias o f [facility] 2022-03-19 2022-03-19 Telephone [facility] [id number] Univers 00:00:00 00:00:00 Neno Vargas SUPERVISOR FLESHING 350.1.13.10 ity of [facility] [id number] Aditya as MATERNAL [id number] [facility] ical & CHILD [address] [place] [address] 2022-03-14 2022-03-14 Outpatient R [facility] [id number] Univers 08:15:00 08:15:00 NENO ity o f [facility] 2022-03-14 2022-03-14 [facility] [id number] Univers 08:00:00 08:00:00 NENO ity o f [facility] 2022-03-14 2022-03-14 Letter [facility] [id number] Univers 00:00:00 00:00:00 (Out) Neno C [employer]PERVIS[employer] FLESHING 350.1.13.10 ity of [facility] [id number] Aditya as MATERNAL [id number] Med ical & CHILD [address] [place] [address] 2022-03-13 2022-03-13 Orders Doctor RAMÍREZ [id number] Univers 00:00:00 00:00:00 Only Unassigned, ALEJANDRO 350.1.13.10 ity of [place] [facility] [id number] Aditya as [id number] [address] 2022-03-07 2022-03-07 Outpatient Zuniga_F MM[facility] [id number] [facility] 00:00:00 00:00:00 825 Medical Group 2022-03-07 2022-03-07 Outpatient Zuniga_F MMG [facility] [id number] [facility] 00:00:00 00:00:00 503 Medical Group 2022-03-06 2022-03-06 Telephone [facility] 1.2.840.114 [id number] Univers 00:00:00 00:00:00 Neno C SUPERVISOR FLESHING 350.1.13.10 ity of [facility] [id number] Aditya as MATERNAL [id number] Med ical & CHILD [address] [place] [address] 2022-03-06 2022-03-06 Telephone [facility] 1.2.840.114 [id number] Univers 00:00:00 00:00:00 Neno C SUPERVISOR FLESHING 350.1.13.10 ity of [facility] [id number] Aditya as MATERNAL [id number] Med ical & CHILD [address] [place] [address] 2022-03-05 2022-03-05 Telephone [facility] [id number] Univers 00:00:00 00:00:00 Neno C SUPERVISOR FLESHING 350.1.13.10 ity of REGIONAL [id number] Aditya as MATERNAL [id number] [facility] & CHILD [address] [place] [address] 2022-03-05 2022-03-05 Telephone [facility] 1.2.840.114 [id number] Univers 00:00:00 00:00:00 Neno C SUPERVISOR FLESHING 350.1.13.10 ity of REGIONAL [id number] Aditya as MATERNAL [id number] [address] 2022-03-04 2022-03-04 Telephone [facility] [id number] Univers 00:00:00 00:00:00 Neno C SUPERVISOR FLESHING 350.1.13.10 ity of REGIONAL [id number] Aditya as MATERNAL [id number] [address] 2022-03-01 2022-03-01 Outpatient [facility] [id number] Univers 10:30:00 11:40:11 NENO iglesias o f [facility] 2022-03-01 2022-03-01 [facility] [id number] Univers 10:30:00 11:40:11 Visit Neno C [employer]PER[employer]ING 350.1.13.10 ity of REGIONAL [id number] Aditya as MATERNAL [id number] [address] 2022-03-01 2022-03-01 Outpatient R [facility] [id number] Univers 10:30:00 11:40:11 NENO ity o f [facility] 2022-03-01 2022-03-01 Francisco RAMÍREZ 1.2.840.114 [id number] Univers 00:00:00 00:00:00 Only Unassigned, ALEJANDRO 350.1.13.10 ity of [facility] [id number] Aditya [id number] [address] 2021-12-05 2021-12-05 Emergency X MAGDALENO [facility] ERT [id number] Univers 11:02:00 13:38:00 MARIANA iglesias [facility] 2021-12-05 2021-12-05 Emergency [facility] [id number] Univers 11:02:00 13:38:00 Mariana DE LA TORRE 350.1.13.10 i ty of [place] [id number] [facility] [id number] [address] 2021-11-28 2021-11-28 Emergency Tarsha KRUEGER [facility] ERT [id number] Univers 09:10:00 11:07:00 MICHELLE harris [facility] 2021-11-28 2021-11-28 Emergency Ray [facility] [id number] Univers 09:10:00 11:07:00 Michelle LERMASABAS [id number] [facility] [id number] [facility] [id number] [address] 2021-10-05 2021-10-05 Emergency [facility] E[facility] [id number] Univers 05:41:00 07:28:00 CHEKO harris [facility] 2021-10-05 2021-10-05 Emergency Singer [facility] [id number] Univers 05:41:00 07:28:00 Cheko WIL [id number] i ty of [place] [id number] [facility] [id number] [address] 2021-09-18 2021-09-19 Emergency Tarsha [facility]ICKS [facility] [facility] ERT [id number] Univers 20:08:00 01:15:00 DOMENICO iglesias [facility] 2021-09-18 2021-09-19 Emergency Fabiola [facility] [id number] Univers 20:08:00 01:15:00 Domenico DE LA TORRE 350.1.13.10 ity of [place] 4.2.7.2.686 [facility] [id number] [facility] 084 Branch 2021-07-18 2021-07-[address] Junior_F [facility] [id number] 0220 [place] 04:06:00 04:06:00 105 [facility] 2021-07-12 2021-07-12 Chenglew Ritter_F [facility] [place] - 4879-202 11 [place] 00:00:00 00:00:00 Peewee Lopez 230 Jcarlos Martinez MD: [address] [place] [address] 201, [place] [address] , Ph. 2021-06-24 2021-06-24 [facility] ERT [id number] Univers 09:56:00 12:35:00 CARLIN ity [facility] 2021-06-24 2021-06-24 Emergency [facility] [id number] Univers 09:56:00 12:35:00 Carlin DE LA TORRE 350.1.13.10 i ty of [place] 4.2.7.2.686 [facility] [id number] [place] [id number] Branch 2021-06-24 2021-06-24 Orders Doctor RAMÍREZ 1.2.840.114 [id number] Univers 00:00:00 00:00:00 Only Unassigned, ALEJANDRO 350.1.13.10 ity of [facility] 4.2.7.2.686 Aditya as [id number] [facility] 009 Branch 2021-06-12 2021-06-12 Cheng Ritter_F [facility] [place] - 4879-202 11 [place] 00:00:00 00:00:00 Peewee Lopez 130 Jcarlos Martinez MD: 600 [facility] [address], [place] [address] , Ph. 2021-05-03 2021-05-03 Emergency [facility] [id number] Univers 06:07:00 09:48:00 Domenico De La Torre 350.1.13.10 ity [facility] 4.2.7.2.686 [facility] [id number] [address] 2021-05-03 2021-05-03 Emergency X [facility] ERT [id number] Univers 06:07:00 09:48:00 MARILYNLI ity [facility] 2021-04-30 2021-04-30 Outpatient Zuniga_F [facility] MM [id number] 0211 [place] 04:00:00 04:00:00 018 Medical [facility] 2021-04-26 2021-04-26 Cheng Zuniga_F [facility] [place] - 4879 11 [place] 00:00:00 00:00:00 Peewee Lopez 014 Jcarlos Martinez MD: 600 [facility] 201, [place] [address] , Ph. 2021-04-14 2021-04-14 Emergency [facility] 1.2.840.114 [id number] Univers 19:08:00 22:35:00 Shalonda De La Torre 350.1.13.10 i ty [facility] 4.2.7.2.686 [facility] [id number] [address] 2021-03-29 2021-03-29 Cheng Zuniga_F [facility] [place] - 4879 10 [place] 00:00:00 00:00:00 Peewee Lopez 916 Jcarlos Martinez MD: 600 [facility] 201, [place] [address] , Ph. 2021-03-21 2021-03-21 Outpatient Zuniga_F MMG MMG [id number] 0210 [place] 10:10:00 10:10:00 908 Medical Group 2021-03-07 2021-03-07 Outpatient Zuniga_F MM[facility] MMG [id number] 0210 [place] 09:18:00 09:18:00 825 [facility] 2021-02-19 2021-02-19 Vivian Itzel [facility] [place] - [id number] [place] 00:00:00 00:00:00 Discovery Itzel 809 da [employer] [employer]: [address] [address] , Ph. 2021-02-14 2021-02-14 Outpatient Zuniga_F [facility] MM [id number] 0210 [place] 04:43:00 04:43:00 804 [facility] 2021-01-18 2021-01-18 Cheng Zuniga_F [facility] [place] - 4879-202 10 [place] 00:00:00 00:00:00 Peewee Lopez 708 Jcarlos Martinez Medical MD: [address] [place] [address] , Ph. 2021-01-08 2021-01-08 Outpatient Zuniga_F MMG MMG [id number] 0210 [place] 12:18:00 12:18:00 628 [facility] 2020-12-21 2020-12-21 Cheng Zuniga_F [facility] [place] - 4879-202 10 [place] 00:00:00 00:00:00 Peewee Lopez 610 Jcarlos Martinez Medical MD: [address] [place] [address] , Ph. 2020-12-05 2020-12-05 Outpatient Zuniga_F MMG MMG [id number] 0210 [place] 01:02:00 01:02:00 525 [facility] 2020-11-29 2020-11-29 Outpatient Zuniga_F MMG MMG [id number] 0210 [place] 09:20:00 09:20:00 519 [facility] 2020-11-23 2020-11-23 Cheng Zuniga_F [facility] [place] - 4879-202 10 [place] 00:00:00 00:00:00 Peewee Lopez 513 Jcarlos Martinez MD: [address] [place] [address] 201, [place] [address] , Ph. 2020-10-19 2020-10-19 Cheng Basilioa_F [facility] [place] - 4879-202 10 [place] 00:00:00 00:00:00 Peewee Lopez 408 Jcarlos Martinez MD: [address] [place] [address] 201, [place] [address] , Ph. 2020-10-10 2020-10-10 Emergency Barr, [facility] [id number] 07:42:00 09:16:00 Tye De La Torre 350.1.13.10 [place] 4.2.7.2.686 [place] [id number] 2020-10-10 2020-10-10 Orders Doctor PENDING SALE TO [facility] 1.2.840.114 [id number] 00:00:00 00:00:00 Only Unassigned, ALEJANDRO 350.1.13.10 [place] [address]686 [id number] 009 2020-09-21 2020-09-21 Cheng Basilioa_F [facility] [place] - 4879-202 10 [place] 00:00:00 00:00:00 Peewee Lopez 311 Jcarlos Martinez MD: [address] [place] [address] 201, [place] [address] , Ph. 2020-08-24 2020-08-24 Cheng Basilioa_F [facility] [place] - 4879-202 10 [place] 00:00:00 00:00:00 Peewee Lopez 211 Jcarlos Martinez MD: [address] [place] [address] 201, [place] [address] , Ph. 2020-07-25 2020-07-25 Vivian Zuniga_F [facility] [place] - [id number] 0 [place] 00:00:00 00:00:00 Discovery Itzel 112 da [employer]: [address] [place] [address] , Ph. 2020-06-22 2020-06-22 Cheng Zuniga_F [facility] [place] - 4879-202 01 [place] 00:00:00 00:00:00 Peewee Lopez 210 refugio Ritter Medical Medical MD: [address] [place] [address], [place] [address] , Ph. 2020-05-31 2020-05-31 Outpatient Zuniga_F MMG MM [id number] 0201 [place] 02:49:00 02:49:00 118 refugio [facility] 2020-05-25 2020-05-25 Cheng Zuniga_F [facility] [place] - 4879-202 [place] 00:00:00 00:00:00 Peewee Lopez 112 refugio [facility] MD: [address] [place] [address], [place] [address] , Ph. 2020-05-23 2020-05-23 Outpatient Zuniga_F MM[facility] MM [id number] 020 [place] 03:37:00 03:37:00 110 refugio [facility] 2020-04-26 2020-04-26 Cheng Zuniga_F [facility] [place] - 4879-202 01 [place] 00:00:00 00:00:00 Peewee Lopez 014 refugio [facility] MD: [address] [place] [address] , Ph. 2020-04-21 2020-04-21 Outpatient Zuniga_F MM[facility] MM [id number] 0201 [place] 02:59:00 02:59:00 009 refugio [facility] 2020-03-28 2020-03-28 Cheng Zuniga_F [facility] [place] - 4879 00 [place] 00:00:00 00:00:00 Peewee Lopez 915 Jcarols Matrinez MD: 600 [facility] [address], [place] [address] , Ph. 2020-01-04 2020-01-04 Outpatient Zuniga_F MMG MMG [id number] 0200 [place] 11:21:00 11:21:00 623 Medical Group 2020-01-03 2020-01-03 Outpatient Zuniga_F MMG MMG [id number] 0200 [place] 09:49:00 09:49:00 622 [facility] 2019-11-10 2019-11-10 Outpatient Zuniga_F MMG MMG [id number] 0200 [place] 12:41:00 12:41:00 429 [facility] 2019-11-09 2019-11-09 Cheng Zuniga_F [facility] [place] - 4879 00 [place] 00:00:00 00:00:00 Peewee Lopez 428 Jcarlos Martinez MD: 600 [facility] 201, [place] [address] , Ph. 2019-09-15 2019-09-15 Emergency X SINGER [facility] ERT [id number] 09:16:27 11:22:00 CHEKO iglesias [facility] 2019-09-15 2019-09-15 Emergency Singer [facility] [id number] 09:16:27 11:22:00 Cheko De La Torre 350.1.13.10 [place] 4.2.7.2.686 [place] [id number] [id number] 2019-09-02 2019-09-02 Cheng Zuniga_F [facility] [place] - 4879- 00 [place] 00:00:00 00:00:00 Peewee Lopez 220 Jcarlos Martinez MD: 600 [facility] [address], [place] [address] , Ph. 2019-08-11 2019-08-11 Hospital Radiology [facility] 1.2.840.114 [id number] 14:30:00 23:59:00 Finn De La [place]re 350.1.13.10 [place] 4.2.7.2.686 [place] [id number] 807 2019-07-01 2019-07-01 Cheng [place] - 8147-9286 1 [place] 00:00:00 00:00:00 Peewee Lopez 219 Jcarlos Martinez MD: [address] [place] [address] [address], [place] [address] , Ph. 2019-06-03 2019-06-03 Cheng [facility] [place] - 3746-0233 1 [place] 00:00:00 00:00:00 Peewee Lopez 121 Jcarlos Martinez MD: [address] [place] [address] 201, [place] [address] , Ph. 2019-05-05 2019-05-05 Cheng [place] - 5270-1462 1 [place] 00:00:00 00:00:00 Peewee Lopez 023 Jcarlos Martinez MD: [address] [place] [address] 201, [place] [address] , Ph. 2019-04-01 2019-04-01 Cheng [facility] [place] - 2635-6334 0 [place] 00:00:00 00:00:00 Peewee Lopez 919 Jcarlos Martinez MD: [address] [place] [address] 201, [place] [address] , Ph. 2019-03-12 2019-03-12 Emergency Bur[place], [facility] [id number] 09:02:28 09:49:00 Cheko De La Torre 350.1.13.10 [place] 4.2.7.2.686 [place] [id number] 084 2019-03-04 2019-03-04 Cheng [place] - 5312-0993 0 [place] 00:00:00 00:00:00 Peewee Lopez 822 Jcarlos Martinez Medical MD: [address] [place] [address] Family [address], [place] [address] , Ph. 2018-12-31 2018-12-31 Cheng [facility] [place] - 6919-2215 0 [place] 00:00:00 00:00:00 Peewee Lopez 620 Jcarlos Martinez Medical MD: [address] [place] [address] [address], [place] [address] , Ph. 2018-11-26 2018-11-26 Cheng [facility] [place] - 3886-9291 0 [place] 00:00:00 00:00:00 Peewee Lopez 516 Jcarlos Martinez Medical MD: [address] [place] [address] [address], [place] [address] , Ph. 2018-11-04 2018-11-04 Cheng [facility] [place] - 4721-8391 0 [place] 00:00:00 00:00:00 Peewee Lopez 424 Jcarlos Martinez Medical MD: [address] [place] [address] [address], [place] [address] , Ph. 2018-10-29 2018-10-29 Cheng [facility] [place] - 4728-6866 0 [place] 00:00:00 00:00:00 Peewee Lopez 418 Jcarlos Martinez MD: [address] [place] [address] 201, [place] [address] , Ph. 2018-09-24 2018-09-24 Cheng [facility] [place] - 5533-7767 0 [place] 00:00:00 00:00:00 Peewee Lopez 314 Jcarlos Martinez MD: [address] [place] [address] [address], [place] [address] , Ph. 2018-08-25 2018-08-25 Cheng [facility] [place] - 7839-9203 0 [place] 00:00:00 00:00:00 Peewee Lopez 212 Jcarlos Martinez Medical MD: 600 [facility] [address], [place] [address] , Ph. 2018-07-23 2018-07-23 Cheng [facility] [place] - 9029-6580 0 [place] 00:00:00 00:00:00 Peewee Lopez 110 Jcarlos Martinez MD: 600 [facility] [address], [place] [address] , Ph. 2018-06-25 2018-06-25 Cheng [facility] [place] - 6562-4870 1 [place] 00:00:00 00:00:00 Peewee Lopez 213 Jcarlos Martinez MD: 600 [facility] [address], [place] [address] , Ph. Results Test Description Test Time Test Comments Results Result Comments Source TROPONIN I 2022-06-04 07:58:35 Test Item Value Reference Range Interpretation Comme nts TROPONIN I (test code = 0.009 ng/mL See_Comment [Au tomated message] The [id number]) system which ge nerated this result tra nsmitted reference range : <=0.034. The reference r arielle was not used to int erpret this result as normal/abnormal . MELISA (test code = MELISA) Reference (Normal) Range (defined by the 99th percentile reference limit): <= 0.034 ng/mL Note: Cardiac troponin begins to rise 3-4 hours after the onset of ischemia. Repeat in 4-6 hours if the sample was drawn within 3-4 hours of the onset of the symptom and found normal. Diagnosis of myocardial injury is made with acute changes in cTn concentrations with at least one serial sample above the 99th percentile upper reference limit (URL), taken together with the patient's clinical presentation. Biotin has been reported to cause a negative bias, interpret results relative to patient's use of biotin. Lab Interpretation Normal (test code = 28999-9) [facility] [id number] 06:49:46 Test Item Value Reference Interpretation Comments Range TROPONIN I (test 0.003 ng/mL See_Comment [Automated code = 0889563941) message] The system which generated this result transmitted reference range : <=0.034. The reference range was not used to interpret this result as normal/abnormal . MELISA (test code = Reference (Normal) MELISA) Range (defined by the 99th percentile reference limit): <= 0.034 ng/mL Note: Cardiac troponin begins to rise 3-4 hours after the onset of ischemia. Repeat in 4-6 hours if the sample was drawn within 3-4 hours of the onset of the symptom and found normal. Diagnosis of myocardial injury is made with acute changes in cTn concentrations with at least one serial sample above the 99th percentile upper reference limit (URL), taken together with the patient's clinical presentation. Biotin has been reported to cause a negative bias, interpret results relative to patient's use of biotin. Lab Interpretation Normal (test code = 41009-3) [facility] [id number] 06:46:28 Test Item Value Reference Range Interpretation Comments NT-proBNP (test code 64 pg/mL See_Comment [Autom ated = 7144228456) message] The system which generated this result transmitted reference range : <=125. The reference range was not used to interpret this result as normal/abnormal . MELISA (test code = MELISA) Biotin has been reported to cause a negative bias, interpret results relative to patient's use of biotin. Lab Interpretation Normal (test code = 51851-5) [id number] 06:33:24 Test Item Value Reference Interpretation Comments Range D-DIMER (test code = See_Comment [Autom ated 3836309737) message] The system which generated this result transmitted reference range : <0.41 ?g/mL (FEU). The reference range was not used to interpret this result as normal/abnormal . MELISA (test code = This test may be MELISA) used in conjunction with a clinical pretest probability (PTP) assessment model to exclude venous thromboembolism (VTE) in patients suspected of deep venous thrombosis (DVT) and pulmonary embolism (PE) A D-Dimer value less than 0.50 ?g/ml (FEU) has a negative predicative value of 96 to 100% (95% CI)and 97 to 100% (95% CI) as an aid in the diagnosis of deep vein thrombosis (DVT) and pulmonary embolism when there is low or moderate pretest probability of PE or DVT. D-Dimer values are expressed in initial fibrinogen equivalent units (FEU)" The assay results should be used with other information, including the clinical context, in forming a diagnosis. Lab Interpretation Normal (test code = 19015-9) [facility]20[facility]-22 06:32:28 Test Item Value Reference Range Interpretation Comments MAGNESIUM (test code = 7323226233) 2.0 mg/dL 1.7-2.4 Lab Interpretation (test code = Normal 28995-5) [facility]OLIC PANEL ([id number])2022-06-04 06:32:08 Test Item Value Reference Range Interpretation Comments NA (test code = 136 mmol/L 135-145 6201093521) K (test code = 4.0 mmol/L 3.5-5.0 4788755340) CL (test code = 104 mmol/L 98-108 8697520656) CO2 TOTAL (test code = 22 mmol/L 23-31 L 6578478986) AGAP (test code = 2-16 2350671371) BUN (test code = 8 mg/dL 7-23 1313125201) GLUCOSE (test code = 90 mg/dL 70-110 5568884797) CREATININE (test code = 0.47 mg/dL 0.50-1.04 L 9281903444) TOTAL BILI (test code = 0.9 mg/dL 0.1-1.4 6612765294) CALCIUM (test code = 9.6 mg/dL 8.6-10.6 2116208686) T PROTEIN (test code = 7.6 g/dL 6.3-8.2 7643615597) ALBUMIN (test code = 4.5 g/dL 3.5-5.0 0200141803) ALK PHOS (test code = 99 U/L 34-122 9833704779) ALTv (test code = 34 U/L 5-35 1742-6) AST(SGOT) (test code = 34 U/L 13-40 1695447014) eGFR (test code = mL/min/1.73m2 7805500559) MELISA (test code = MELISA) Association of Glomerular Filtration Rate (GFR) and Staging of Kidney Disease* + --+ --+ ------+| GFR (mL/min/1.73 m2) ?| With Kidney Damage ?| ?Without Kidney Damage+ --------+ --------+ +| ?>90 ?| ?Stage one ?| ? Normal ?+ ---+ ---+ -------+| ?60-89 ?| ?Stage two ?| ? Decreased GFR ? + --+ --+ ------+| ?30-59 ?| ?Stage three ?| ? Stage three ? + --+ --+ ------+| ?15-29 ?| ?Stage four ? | ? Stage four ?+ ---+ ---+ -------+| ?<15 (or dialysis) ? ?| ?Stage five ? | ? Stage five ?+ ---+ ---+ -------+ *Each stage assumes the associated GFR level has been in effect for at least three months. ?Stages 1 to 5, with or without kidney disease, indicate chronic kidney disease. Notes: Determination of stages one and two (with eGFR >59mL/min/1.73 m2) requires estimation of kidney damage for at least three months as defined by structural or functional abnormalities of the kidney, manifested by either:Pathological abnormalities or Markers of kidney damage (including abnormalities in the composition of the blood or urine or abnormalities in imaging tests). Lab Interpretation Abnormal (test code = 92853-7) [facility] WITH [id number] 06:22:24 Test Item Value Reference Range Interpretation Comments WBC (test code = See_Comment [Automated 9626-2) message] The sy stem which generated this result transmitted reference range : 4.30 - 11.10 10*3/?L. The reference range was not used to interpret this result as normal/abnormal . RBC (test code = See_Comment [Automated 541-) message] The sy stem which generated this result transmitted reference range : 3.93 - 5.25 10*6/?L. The reference range was not used to interpret this result as normal/abnormal . HGB (test code = 14.0 g/dL 11.6-15.0 718-7) HCT (test code = 41.5 % 35.7-45.2 4544-3) MCV (test code = 91.4 fL 80.6-95.5 787-2) MCH (test code = 30.8 pg 25.9-32.8 785-6) MCHC (test code = 33.7 g/dL 31.6-35.1 786-4) RDW-SD (test code = 45.1 fL 39.0-49.9 15123-1) RDW-CV (test code = 13.4 % 12.0-15.5 788-0) PLT (test code = See_Comment [Automated 777-3) message] The sy stem which generated this result transmitted reference range : 166 - 358 10*3/ ?L. The reference r arielle was not used to interpret this result as normal/abnormal . MPV (test code = 8.6 fL 9.5-12.9 L 73450-4) NRBC/100 WBC (test See_Comment [Automat ed code = 0210660948) message] The system which generated this result transmitted reference range : 0.0 - 10.0 /100 WBCs. The refer ence range was not u sed to interpret th is result as normal/abnormal . NRBC x10^3 (test code See_Comment [Auto mated = 4107523040) message] The s ystem which generated this result transmitted reference range : 10*3/?L. The reference range was not used to interpret this result as normal/abnormal . GRAN MAT (NEUT) % 41.1 % (test code = 770-8) IMM GRAN % (test code 0.60 % = 9119457734) LYMPH % (test code = 46.1 % 736-9) MONO % (test code = 9.6 % 5905-5) EOS % (test code = 1.3 % 713-8) BASO % (test code = 1.3 % 706-2) GRAN MAT x10^3(ANC) 2.84 10*3/uL 1.88-7.09 (test code = 7583327068) IMM GRAN x10^3 (test 0.04 10*3/uL 0.00-0.06 code = 4494836956) LYMPH x10^3 (test code 3.18 10*3/uL 1.32-3.29 = 731-0) MONO x10^3 (test code 0.66 10*3/uL 0.33-0.92 = 742-7) EOS x10^3 (test code = 0.09 10*3/uL 0.03-0.39 711-2) BASO x10^3 (test code 0.09 10*3/uL 0.01-0.07 H = 704-7) Lab Interpretation Abnormal (test code = 36751-8) [facility] WITH [id number] 14:24:46 Test Item Value Reference Range Interpretation Comments WBC (test code = See_Comment L [Automated 6690-2) message] The sy stem which generated this result transmitted reference range : 4.30 - 11.10 10*3/?L. The reference range was not used to interpret this result as normal/abnormal . RBC (test code = See_Comment [Automated 789-8) message] The sy stem which generated this result transmitted reference range : 3.93 - 5.25 10*6/?L. The reference range was not used to interpret this result as normal/abnormal . HGB (test code = 13.9 g/dL 11.6-15.0 718-7) HCT (test code = 40.5 % 35.7-45.2 4544-3) MCV (test code = 90.2 fL 80.6-95.5 787-2) MCH (test code = 31.0 pg 25.9-32.8 785-6) MCHC (test code = 34.3 g/dL 31.6-35.1 786-4) RDW-SD (test code = 47.3 fL 39.0-49.9 30218-4) RDW-CV (test code = 14.2 % 12.0-15.5 788-0) PLT (test code = See_Comment [Automated 777-3) message] The sy stem which generated this result transmitted reference range : 166 - 358 10*3/ ?L. The reference r arielle was not used to interpret this result as normal/abnormal . MPV (test code = 8.9 fL 9.5-12.9 L 75567-8) NRBC/100 WBC (test See_Comment [Automat ed code = 6272814055) message] The system which generated this result transmitted reference range : 0.0 - 10.0 /100 WBCs. The refer ence range was not u sed to interpret th is result as normal/abnormal . NRBC x10^3 (test code See_Comment [Auto mated = 4735814468) message] The s ystem which generated this result transmitted reference range : 10*3/?L. The reference range was not used to interpret this result as normal/abnormal . GRAN MAT (NEUT) % 45.1 % (test code = 770-8) IMM GRAN % (test code 0.50 % = 9906135298) LYMPH % (test code = 36.5 % 736-9) MONO % (test code = 14.5 % 5905-5) EOS % (test code = 2.2 % 713-8) BASO % (test code = 1.2 % 706-2) GRAN MAT x10^3(ANC) 1.87 10*3/uL 1.88-7.09 L (test code = 2522615841) IMM GRAN x10^3 (test 0.00-0.06 code = 2438793654) LYMPH x10^3 (test code 1.51 10*3/uL 1.32-3.29 = 731-0) MONO x10^3 (test code 0.60 10*3/uL 0.33-0.92 = 742-7) EOS x10^3 (test code = 0.09 10*3/uL 0.03-0.39 711-2) BASO x10^3 (test code 0.05 10*3/uL 0.01-0.07 = 704-7) REACT LYMPHS (test Rare code = 4203345593) Lab Interpretation Abnormal (test code = 67159-4) [facility] ([id number])2022-05-23 14:00:36 Test Item Value Reference Range Interpretation Comments NA (test code = 136 mmol/L 135-145 8758426635) K (test code = 4.2 mmol/L 3.5-5.0 9947016716) CL (test code = 105 mmol/L 98-108 4156629433) CO2 TOTAL (test code = 23 mmol/L 23-31 3019520879) AGAP (test code = 2-16 7246013734) BUN (test code = 9 mg/dL 7-23 5664033650) GLUCOSE (test code = 87 mg/dL 70-110 9027927505) CREATININE (test code = 0.49 mg/dL 0.50-1.04 L 0546531337) TOTAL BILI (test code = 0.8 mg/dL 0.1-1.8 5585439164) CALCIUM (test code = 9.0 mg/dL 8.6-10.6 2821565364) T PROTEIN (test code = 7.2 g/dL 6.3-8.2 1746747944) ALBUMIN (test code = 4.3 g/dL 3.5-5.0 2111661876) ALK PHOS (test code = 81 U/L 34-122 6351026215) ALTv (test code = 32 U/L 5-35 2-6) AST(SGOT) (test code = 30 U/L 13-40 5346647923) eGFR (test code = mL/min/1.73m2 3791017295) MELISA (test code = MELISA) Association of Glomerular Filtration Rate (GFR) and Staging of Kidney Disease* + --+ --+ ------+| GFR (mL/min/1.73 m2) ?| With Kidney Damage ?| ?Without Kidney Damage+ --------+ --------+ +| ?>90 ?| ?Stage one ?| ? Normal ?+ ---+ ---+ -------+| ?60-89 ?| ?Stage two ?| ? Decreased GFR ? + --+ --+ ------+| ?30-59 ?| ?Stage three ?| ? Stage three ? + --+ --+ ------+| ?15-29 ?| ?Stage four ? | ? Stage four ?+ ---+ ---+ -------+| ?<15 (or dialysis) ? ?| ?Stage five ? | ? Stage five ?+ ---+ ---+ -------+ *Each stage assumes the associated GFR level has been in effect for at least three months. ?Stages 1 to 5, with or without kidney disease, indicate chronic kidney disease. Notes: Determination of stages one and two (with eGFR >59mL/min/1.73 m2) requires estimation of kidney damage for at least three months as defined by structural or functional abnormalities of the kidney, manifested by either:Pathological abnormalities or Markers of kidney damage (including abnormalities in the composition of the blood or urine or abnormalities in imaging tests). Lab Interpretation Abnormal (test code = 07168-0) [facility], [id number] 13:57:45 Test Item Value Reference Range Interpretation Comments PREG SERUM (test code Negative = 0106077560) MELISA (test code = MELISA) Less than 10 IU/L. ?If low titer or ectopic is suspected, resubmit specimen in 48-72 hours. [facility] PELVIS [id number] 15:29:00 [facility] : 1975 Sex: F Patient Name: BEATRIZ BONNER Unit No: [id number] EXAMS: CPT CODE: [id number] US PELVIS COMPLETE 52015 CLINICAL HISTORY: Menorrhagia Real-time ultrasound examination of the pelvis was performed using transabdominal and endovaginal approach. Doppler evaluation of both ovaries was also performed. The uterus measures 9.1 x 5.3 x 5.8 cm in greatest dimensions with endometrium measuring 13 mm in AP dimension. No focal endometrial abnormality is noted. There is no evidence of uterine fibroid or othersignificant uterine abnormality. The right ovary measures 49 x 30 x 40 mm and contains a follicle measuring 35 x 25 x 34 mm. Blood flow is identified in the right ovary. The left ovary measures 26 x 11x 15 mm and has normal sonographic appearance. [...] t.SDR.YOS Orig Print D/T: S: 10/12/2020 (1532) [facility] NAME: BEATRIZ BONNER Radiology Department PHYS: Desiree Lemon III, MD [address] : 1975 AGE: 45 SEX: F [place] [address] LOC: Eliseo.RAD PHONE #: [phone] EXAM DATE: 10/12/2020 STATUS: REG CLI FAX #: [phone] RAD NO: Page 1 Signed Report Patient Name: DASH BONNERENA MANSI Unit No: [id number] EXAMS: CPT CODE: [id number] US PELVIS COMPLETE 55447 (Continued) [facility] NAME: BEATRIZ BONNER Radiology Department PHYS: Desiree Lemon III, MD [address] : 1975 AGE: 45 SEX: F [place], [place] [address] LOC: Eliseo.RAD PHONE #: [phone] EXAM DATE: 10/12/2020 STATUS: REG CLI FAX #: [phone] RAD NO: Page 2 Signed Report- US TRANSVAGINAL W/[id number] 15:29:00 [facility] BEATRIZ NAZARIO : 1975 Sex: F Patient Name: BEATRIZ BONNER Unit No: [id number] EXAMS: CPT CODE: [id number] US TRANSVAGINAL W/PELVIS 08337 CLINICAL HISTORY: Menorrhagia Real-time ultrasound examination of the pelvis was performed using transabdominal and endovaginal approach. Doppler evaluation of both ovaries was also performed. The uterus measures 9.1 x 5.3 x 5.8 cm in greatest dimensions with endometrium measuring 13 mm inAP dimension. No focal endometrial abnormality is noted. There is no evidence of uterine fibroid or other significant uterine abnormality. The right ovary measures 49 x 30 x 40 mm and contains a follicle measuring 35 x 25 x 34 mm. Blood flow is identified in the right ovary. The left ovary measures 26x 11 x 15 mm and has normal [...] III, MD Technologist: Bradford Feliz RDMS Probe: [id number] Trnscrbd D/ (1529) t.ISABELR.YOS Orig Print D/T: S: 10/12/2020 (1532) [facility] NAME: BEATRIZ BONNER Radiology Department PHYS: Desiree Lemon III, MD [address] : 1975 AGE: 45 SEX: F [place], [place] [address] LOC: F.RAD PHONE #: [phone] EXAM DATE: 10/12/2020 STATUS: REG CLI FAX #: [phone] RAD NO: Page 1 Signed Report Patient Name: BEATRIZ BONNER Unit No: [id number] EXAMS: CPT CODE: [id number] US TRANSVAGINAL W/PELVIS 67300 (Continued) [facility] NAME: BEATRIZ BONNER Radiology Department PHYS: Desiree Lemon III, MD [address] : 1975 AGE: 45 SEX: F [place], [place] [address] LOC: F.RAD PHONE #: [phone] EXAM DATE: 10/12/2020 STATUS: REG CLI FAX #: [phone] RAD NO: Page 2 Signed Report- DUP AB/PEL/SC/[id number] 15:29:00 [facility] : 1975 Sex: F Patient Name: BEATRIZ BONNER Unit No: [id number] EXAMS: CPT CODE: [id number] DUP AB/PEL/SC/[id number] CLINICAL HISTORY: Menorrhagia Real-time ultrasound examination of [...] or uterine fibroid. 2. No adnexal pathology isseen. at 1529 Reported and signed by: Evangelista Tariq MD CC: Desiree Villanueva III, MD Technologist: Bradford Feliz RDMS Probe: Trnscrbd D/ (1529) t.SDR.YOS Orig Print D/T: S: 10/12/2020 (1532) [facility] NAME: BEATRIZ BONNER Radiology Department PHYS: Desiree Lemon III, MD [address] : 1975 AGE: 45 SEX: F [place] [address] LOC: .RAD PHONE #: [phone] EXAM DATE: 10/12/2020 STATUS: REG CLI FAX #: [phone] RAD NO: Page 1 Signed Report Patient Name: BEATRIZ BONNER Unit No: [id number] EXAMS: CPT CODE: [id number] DUP AB/PEL/SC/LTD 51155 (Continued) [facility] NAME: BEATRIZ BONNER MANSI Radiology Department PHYS: Desiree Lemon III, MD[address] : 1975 AGE: 45 SEX: F [place] [address] LOC: .RAD PHONE #: [phone] EXAM DATE: 10/12/2020 STATUS: REG CLI FAX #: [phone] RAD NO: Page 2 Signed ReportCB W Auto Differential panel - [id number] 07:03:00 Test Item Value Reference Range Interpretation Comments white blood count (test code = 4.4 K/uL 4.0-11.5 white blood count) red blood count (test code = red 4.29 M/uL 3.80-5.20 blood count) hemoglobin (test code = 13.0 g/dL 10.5-15.7 hemoglobin) hematocrit (test code = 40.2 % 34.0-50.0 hematocrit) MCV [Entitic volume] (test code = 93.7 fL 86-100 09496-4) mean corpuscular hemoglobin (test 30.3 pg 26.2-33.4 code = mean corpuscular hemoglobin) mean corpuscular HGB conc (test 32.3 g/dL 30-34 code = mean corpuscular HGB conc) red cell distribution width (test 12.5 % 12.0-15.5 code = red cell distribution width) platelet count (test code = 325 K/uL 165-450 platelet count) mean platelet volume (test code = 9.1 fL 9.4-12.6 L mean platelet volume) Segmented neutrophils/100 53.8 % 44.4-80.1 leukocytes in Blood (test code = 17854-7) Immature granulocytes [#/volume] 0.0 K/uL 0.0-0.03 H in Blood (test code = 34759-7) lymphocyte% (test code = 33.1 % 10.0-50.0 lymphocyte%) mono % (test code = mono %) 9.0 % 3.6-12.0 eos % (test code = eos %) 1.8 % 0.0-5.4 Basophils/100 leukocytes in 1.8 % 0.1-1.2 H Unspecified specimen (test code = 01067-6) Band form neutrophils [#/volume] 2.34 K/uL 1.56-6.13 in Blood (test code = 69694-9) Lymphocytes [#/volume] in 1.4 K/uL 1.18-3.74 Unspecified specimen by Automated count (test code = 57265-1) mono # (test code = mono #) 0.39 K/uL 0.24-0.86 eos # (test code = eos #) 0.08 K/uL 0.04-0.36 basophil # (test code = basophil 0.08 K/uL 0.01-0.08 #) NRBC% (test code = NRBC%) 0 /100 WBC 0-0.2 NRBC# (test code = NRBC#) 0 K/uL [facility], method unspecified - [id number] 07:03:00NeutrophilsBandLymphocyteAtypical LymphMonocyteEosinophilBasophilMetamyelocytePlatelet EstimatePlatelet MorphologyHypochromasiaPoikilocytosisAnisocytosisMicrocytosisOvalocytesToxic GranulationHypersegmented PolysToxic VacuolationSmudge CellsGiant PlateletsDifferential comment-[facility] CountyHemoglobin A1c [Mass/volume] in [id number] 07:03:00 Test Item Value Reference Range Interpretation Comments Hemoglobin A1c [Mass/volume] in Blood 5.2 % 4.0-6.0 (test code = 62406-1) [facility]Comprehensive metabolic 2000 panel - Serum or Plasma [...] Serum or Plasma (test code = 6768-6) [facility] HospitalLipid 1996 panel - Serum or [id number] 07:03:00 Test Item Value Reference Range Interpretation Comments cholesterol level (test code = 255 mg/dL 150-200 H cholesterol level) triglycerides level (test code = 152 mg/dL <150 H triglycerides level) HDL cholesterol (test code = HDL 66 mg/dL >65 cholesterol) LDL cholesterol direct (test code = 170 mg/dL <100 H LDL cholesterol direct) cholesterol risk ratio (test code = 3.863 cholesterol risk ratio) [facility]Thyrotropin [Units/volume] in Serum or [id number] 07:03:00 Test Item Value Reference Range Interpretation Comments Thyrotropin [Units/volume] in 0.84 uIU/mL 0.36-3.74 Serum or Plasma (test code = 3016-3) [facility]
--- NOTE | 2023-05-03 22:37 | RAD REPORT ---
[facility] CLINICAL HISTORY: CHEST PAIN COMPARISON: No comparisons TECHNIQUE: Portable AP view of the chest. FINDINGS: The lungs are clear. No pneumothorax or effusion. The cardiomediastinal contours are unre markable. IMPRESSION: No acute cardiopulmonary process.
[2023-05-03 22:39] LABS: Specific Gravity 1.006 (1.005-1.030); Urine Bilirubin NEGATIVE (Negative); Urine Blood Negative (Negative); Urine Clarity Clear (Clear); Urine Color Colorless (Yellow); Urine Glucose NEGATIVE (Negative); Urine Protein NEGATIVE (Negative); Urine Urobilinogen Normal (Normal); Urine pH 5.5 (5.0-7.0)
[2023-05-03 22:41] LABS: Absolute Lymphocytes (CBC) 3.4 K/uL (0.7-4.9); Hematocrit 38.7 % (36.0-45.0); Lymphocytes % 40.9 % (15.3-44.8); MCV 93.9 fL (80-100); MPV 7.2 fL (7.6-11.3); Platelets 136 thou/uL (152-406); RBC Red Blood Cell Count 4.12 M/uL (3.86-4.86)
[2023-05-03 22:46] LABS: Protime INR 0.87
[2023-05-03 22:59] LABS: Albumin 3.4 g/dL (3.4-5.0); Bilirubin Direct 0.2 mg/dL (0-0.2); Bilirubin Indirect, Calculated 0.8 mg/dL (0.2-0.8); Magnesium 2.2 mg/dL (1.6-2.4); Potassium 3.7 mEq/L (3.5-5.1); Protein, Total 7.3 g/dL (6.4-8.2); Troponin High Sensitivity 4.1 pg/mL (<58.9)
--- NOTE | 2023-05-04 00:01 | ER ---
Nurse's Notes [facility] Name: Lin Escalante Age: 48 yrs Sex: Female : 1975 Arrival Date: 05/03/2023 Time: 21:46 Bed 4 Private MD: Diagnosis: Chest pain, unspecified Presentation: 05/03 22:00 Chief complaint: Patient states: CHEST PRESSURE x ALL DAY AND OLIGURIA. Coronavirus bp screen: At this time, the client does not indicate any symptoms associated with coronavirus-19. Ebola Screen: No symptoms or risks identified at this time. Initial Sepsis Screen: Does the patient meet any 2 criteria? No. Patient's initial sepsis screen is negative. Does the patient have a suspected source of infection? No. Patient's initial sepsis screen is negative. Risk Assessment: Do you want to hurt yourself or someone else? Patient reports no desire to harm self or others. Onset of symptoms was May 03, 2023. 22:00 Method Of Arrival: Ambulatory bp 22:00 Acuity: USHA 3 bp Triage Assessment: 22:00 General: Appears in no apparent distress. comfortable, Behavior is cooperative, bp appropriate for age, anxious. Pain: Complains of pain in chest. EENT: No deficits noted. Neuro: No deficits noted. Cardiovascular: Reports chest pain. Respiratory: No deficits noted. Historical: - Allergies: 22:36 Demerol; bp - Home Meds: 22:36 Wellbutrin Oral [Active]; bp - PMHx: 22:36 Depression; bp - PSHx: 22:36 ankle fusion; Spinal Fusion; bp - Immunization history:: Adult Immunizations up to date. - Social history:: Smoking status: Patient denies any tobacco usage or history of. Screenin:00 [facility] ED Fall Risk Assessment (Adult) History of falling in the last 3 months, bp including since admission No falls in past 3 months (0 pts). Abuse screen: Denies threats or abuse. Denies injuries from another. Nutritional screening: No deficits noted. Tuberculosis screening: No symptoms or risk factors identified. Assessment: 22:00 General: SEE TRIAGE NOTE. bp 05/04 00:06 Reassessment: Patient appears in no apparent distress at this time. bp Vital Signs: 05/03 22:00 BP 139 / 85; Pulse 72; Resp 16; Temp 98; Pulse Ox 97% ; bp 05/04 00:06 BP 138 / 83; Pulse 72; Resp 16; Pulse Ox 96% ; bp ED Course: 05/03 21:49 Patient arrived in ED. ag3 21:54 Tyrell Xie DO is Attending Physician. ms3 21:56 Felice Rogers, RN is Primary Nurse. bp 22:00 Arm band placed on. bp 22:00 Patient has correct armband on for positive identification. Bed in low position. Call bp light in reach. Side rails up X2. Adult w/ patient. Client placed on continuous cardiac and pulse oximetry monitoring. NIBP monitoring applied. 22:12 XRAY Chest (1 view) In Process Unspecified. EDMS 22:36 Triage completed. bp 23:59 Vamshi Arita MD is Referral Physician. ms3 05/04 00:06 No provider procedures requiring assistance completed. Patient did not have IV access bp during this emergency room visit. Patient maintains SpO2 saturation greater than 95% on room air. Administered Medications: No medications were administered Medication: 05/03 22:00 VIS not applicable for this client. bp Outcome: 05/04 00:00 Discharge ordered by . ms3 00:06 Discharged to home ambulatory, with family, bp 00:06 Condition: stable 00:06 Discharge instructions given to patient, family, Instructed on discharge instructions, follow up and referral plans. Demonstrated understanding of instructions, follow-up care, 00:07 Patient left the ED. bp Signatures: Dispatcher [employer] EDMS Felice Rogers, RN RN bp Martinez Silvia ag3 Tyrell Xie DO DO ms3
--- NOTE | 2023-05-04 00:01 | EDPHYS ---
Physician Documentation [facility] Name: Lin Escalante Age: 48 yrs Sex: Female : 1975 Arrival Date: 05/03/2023 Time: 21:46 Bed 4 Private MD: ED Physician Tyrell Xie HPI: 05/03 23:59 This 48 yrs old Female presents to ER via Ambulatory with complaints of Chest ms3 Pressure, Nausea. 23:59 -year-old female presents to the emergency department for chest pressure that began ms3 this morning. Patient states the pain is 7/10 radiating to her bilateral arms and neck. Patient endorses nausea and urinary frequency. Patient denies vomiting or sweating. Patient denies any alleviating or inciting factors. Historical: - Allergies: 22:36 Demerol; bp - Home Meds: 22:36 Wellbutrin Oral [Active]; bp - PMHx: 22:36 Depression; bp - PSHx: 22:36 ankle fusion; Spinal Fusion; bp - Immunization history:: Adult Immunizations up to date. - Social history:: Smoking status: Patient denies any tobacco usage or history of. ROS: 23:59 Constitutional: Negative for fever, and chills. Neck: Negative for injury, pain, and ms3 swelling, 23:59 Cardiovascular: Positive for chest pain, 23:59 All other systems are negative, Exam: 22:14 ECG was reviewed by the Attending Physician. ms3 23:59 Constitutional: This is a well developed, well nourished patient who is awake, alert, ms3 and in no acute distress. Head/Face: Normocephalic, atraumatic. Neck: Trachea midline, no cervical lymphadenopathy. Supple, full range of motion without nuchal rigidity, or vertebral point tenderness. No Meningismus. Chest/axilla: Normal chest wall appearance and motion. Nontender with no deformity. Cardiovascular: Regular rate and rhythm with a normal S1 and S2. No gallops, murmurs, or rubs. Normal PMI, no JVD. No pulse deficits. Respiratory: Lungs have equal breath sounds bilaterally, clear to auscultation and percussion. No rales, rhonchi or wheezes noted. No increased work of breathing, no retractions or nasal flaring. Abdomen/GI: Soft, non-tender, with normal bowel sounds. No distension or tympany. No guarding or rebound. No evidence of tenderness throughout. Skin: Warm, dry with normal turgor. Normal color with no rashes, no lesions, and no evidence of cellulitis. MS/ Extremity: Pulses equal, no cyanosis. Neurovascular intact. Full, normal range of motion. Vital Signs: 22:00 BP 139 / 85; Pulse 72; Resp 16; Temp 98; Pulse Ox 97% ; bp 05/04 00:06 BP 138 / 83; Pulse 72; Resp 16; Pulse Ox 96% ; bp MDM: 05/03 22:04 Patient medically screened. ms3 23:59 Differential diagnosis: abnormal EKG, acute myocardial infarction, coronary artery ms3 disease. 05/04 00:00 HEART Score: History: Slightly Suspicious (0), ECG: Normal (0), Age: > 45 and < 65 ms3 years (1), Risk Factors: No Risk Factors Known (0), Troponin: < or = 1 x Normal Limit (0), Total Score = 1. Data reviewed: vital signs, nurses notes, lab test result(s), EKG, radiologic studies, and as a result, I will discharge patient. Consideration of Admission/Observation Escalation of care including admission/observation considered. Consideration of Admission/Observation HEART Score = 0.. Independent interpretation of the following test(s) in the Emergency Department EKG: See my EKG interpretation above X-Ray: My interpretation is CXR image reviewed by me does not reveal pneumonia, pneumothorax, or pulmonary edema. Historians other than the Patient: Spouse/Significant Other: Patient's . Counseling: I had a detailed discussion with the patient and/or guardian regarding the historical points, exam findings, and any diagnostic results supporting the discharge/admit diagnosis, lab results, radiology results, the need for outpatient follow up, to return to the emergency department if symptoms worsen or persist or if there are any questions or concerns that arise at home. Special discussion: Based on the patient's history, exam, and Dx evaluation, there is no indication for emergent intervention or inpatient Tx. It is understood by the patient/guardian that if the Sx's persist or worsen they need to return immediately for re-evaluation. ED course: Discussed labs, chest x-ray, EKG with patient and her . Patient to follow-up with Dr. Arita in 1 to 2 days. Patient and her understand and agree with plan. All questions were answered. Return precautions discussed include worsening symptoms, or any other concerns. On reevaluation patient symptoms improved, patient is alert and oriented x4, no apparent distress, nontoxic-appearing, ambulatory number department, speaking full sentences. 05/03 21:54 Order name: Basic Metabolic Panel; Complete Time: 23:01 ms3 05/03 21:54 Order name: CBC with Diff ms3 05/03 21:54 Order name: LFT's; Complete Time: 23:01 ms3 05/03 21:54 Order name: Magnesium; Complete Time: 23:01 ms3 05/03 21:54 Order name: PT-INR; Complete Time: 23:01 ms3 05/03 21:54 Order name: Troponin HS; Complete Time: 23:01 ms3 05/03 22:04 Order name: Urinalysis w/ reflexes; Complete Time: 23:01 ms3 05/03 21:54 Order name: XRAY Chest (1 view); Complete Time: 23:01 ms3 05/03 21:54 Order name: EKG; Complete Time: 21:55 ms3 05/03 21:54 Order name: Cardiac monitoring; Complete Time: 22:34 ms3 05/03 21:54 Order name: EKG - Nurse/Tech; Complete Time: 22:34 ms3 05/03 21:54 Order name: Labs collected and sent; Complete Time: 22:34 ms3 05/03 21:54 Order name: O2 Per Protocol; Complete Time: 22:34 ms3 05/03 21:54 Order name: O2 Sat Monitoring; Complete Time: 22:34 ms3 EC/21 22:14 Rate is 75 beats/min. Rhythm is regular. QRS [place] is Normal. [place] interval is normal. QRS ms3 interval is normal. QT interval is normal. Clinical impression: Normal ECG. Interpreted by me. Reviewed by me. Administered Medications: No medications were administered Disposition: 05/04 03:01 Chart complete. ms3 Disposition Summary: 05/04/23 00:00 Discharge Ordered Notes: Location: Home ms3 Condition: Stable ms3 Diagnosis - Chest pain, unspecified ms3 Followup: ms3 - With: Vamshi Arita MD - When: 2 - 3 days - Reason: Recheck today's complaints Discharge Instructions: - Discharge Summary Sheet ms3 - Nonspecific Chest Pain, Adult ms3 Forms: - Medication Reconciliation Form ms3 - Thank You Letter ms3 - Antibiotic Education ms3 - Prescription Opioid Use ms3 - Patient Portal Instructions ms3 - Leadership Thank You Letter ms3 Signatures: Dispatcher [employer] Felice Miranda, RN RN Tyrell Clark DO DO ms3 Corrections: (The following items were deleted from the chart) 02:50 05/03 23:59 This 48 yrs old Female presents to ER via Ambulatory with ms3 complaints of Chest Pressure, Nausea. ms3
[2023-05-04 00:13] LABS: White Blood Cell Scan OK (OK)
[2023-05-04 00:14] LABS: Blood Morphology Comment NOT SEEN (NOT SEEN); Platelet Estimate ADEQ
--- NOTE | 2023-05-04 13:50 | EKG ---
Test Date: 2023-05-03 Test Time: 22:14:59 Expediter Clerk: BP MEASUREMENT RESULTS: Intervals: Rate: 75 TN: 152 QRSD: 78 QT: 384 QTc: 428 [place]: P: 42 TN: 152 QRS: 21 T: -3 INTERPRETIVE STATEMENTS: Normal sinus rhythm Normal ECG No previous ECG available for comparison Electronically Signed On 05-04-23 13:49:34 CDT by Vamshi Arita
== END 2023-05-04 00:07 | disposition home or self-care (01) ==
LOC: ER 21:46
DX: R07.89 Other chest pain (principal)
CPT/HCPCS: 36415; 71045; 80048; 80076; 81003; 83735; 84484; 85025; 85610; 93005; 99284